=== PATIENT | male | born 1980 | race Caucasian/White ===

== ENCOUNTER 2021-04-11 12:58 | Outpatient (CLI) | payer OTHER, SELFPAY ==
--- NOTE | 2021-04-11 13:03 | XR_ITS ---
WS: [id number] LEFT KNEE: 3 VIEW(S) TECHNIQUE: AP, oblique(s) and lateral. HISTORY: L knee pain, Swelling COMPARISON: None available. No fracture or dislocation. No joint space narrowing or osteophytes. No joint effusion. No soft tissue abnormality. XR/XR knee LT 3V* [id number] IMPRESSION: Normal LEFT knee.
== END 2021-04-11 12:59 | disposition home or self-care (01) ==
PROVIDERS: Visit Provider Family Medicine
DX: M25.561 Pain in right knee (principal); M79.89 Other specified soft tissue disorders; Z76.89 Persons encountering health services in other specified circumstances; R03.0 Elevated blood-pressure reading, without diagnosis of hypertension
CPT/HCPCS: 73562; 80053; 80061; 85025

== ENCOUNTER → 2021-05-28 13:00 | Outpatient (BNVA) | payer OTHER, SELFPAY | PROVIDERS: Referring Provider Family Medicine; Visit Provider Specialist | DX: M25.562 Pain in left knee (principal) | CPT/HCPCS: 73560; 73565 ==

== ENCOUNTER 2021-06-26 13:29 | Outpatient (CLI) | payer OTHER, SELFPAY ==
--- NOTE | 2021-06-26 13:45 | MR_ITS ---
WS: [id number] MRI LEFT KNEE NONCONTRAST TECHNIQUE: Axial PD, coronal PD fat sat, coronal PD, sagittal PD, and sagittal PD fat-sat images obta ined. CLINICAL INFORMATION: M25.562 - Pain in left knee COMPARISON: None. FINDINGS: Distal quadriceps and patella tendons are intact. Normal ACL and PCL. Hypertrophic patella. Normal la teral meniscus. Chronic intrasubstance signal abnormality involving the posterior horn medial meniscu s. Small radial tear or pseudotear anterior horn medial meniscus extending to the articular surface and free edge of the meniscus. Mild chondromalacia patella. No subchondral edema. Medial and lateral patellar retinaculum are intact . Normal LCL and MCL. Tiny popliteal cyst measuring 6.8 x 9.1 x 16.8 mm AP by transverse by craniocau pierre. Normal bone marrow signal involving the tibial plateau. Normal medial and lateral femoral condyles. MR/MR knee LT wo con* [id number] IMPRESSION: 1. Anterior and posterior cruciate ligaments are intact. 2. Chronic intrasubstance signal abnormality involving the posterior horn medi al meniscus. 3. Small radial tear or pseudotear involving the anterior horn medial meniscus extending to the articular surface and free edge. This is only well seen on th e sagittal imaging. 4. Medial and lateral collateral ligaments are intact. 5. No edema in the femoral condyles or tibial plateau. Grade 1-2 chondromalaci a. 6. Mild chondromalacia patella. 7. Tiny popliteal cyst measuring 6.8 x 9.1 x 16.8 mm AP by transverse by crani ocaudal. Outbridge grading: grade II: blister-like swelling/fraying of articular cartila ge extending to surface
== END 2021-06-26 13:30 | disposition home or self-care (01) ==
PROVIDERS: Visit Provider Specialist
DX: M22.42 Chondromalacia patellae, left knee (principal); M71.22 Synovial cyst of popliteal space [Baker], left knee; M25.562 Pain in left knee
CPT/HCPCS: 73721

== ENCOUNTER 2021-09-05 07:35 | Outpatient (CLI) | payer OTHER, SELFPAY ==
--- NOTE | 2021-09-05 07:48 | USCV_ITS ---
Corey Messina Age: 40 Gender: M : 1980 Exam Date: 09/05/2021 08:01 Ordering Phys: Randa Peña MD Technologist: Oscar Bassett Exam Location: [facility] [place]_ Indication: pain in lt thigh PROCEDURES: Venous duplex imaging was performed in only the left lower extremity. The following venous structures were evaluated: common femoral vein, profunda vein, proximal portion of the greater saphenous vein, superficial femoral vein, and the popliteal vein. In addition, the posterior tibial and peroneal trunk were evaluated. Serial compression, augmentation maneuvers, and spectral Doppler flow evaluation were performed. FINDINGS: Normal 2-D Doppler and augmentation and compressibility throughout the lower extremity venous structures. Additional imaging through the proximal calf veins also reveals no thrombus. Limited evaluation of the greater saphenous vein is patent with no thrombus.. CONCLUSIONS No evidence of left lower extremity DVT. Yusef Franco MD (Electronically Signed) Final Date: 05 Sep 2021 17:17 S
== END 2021-09-05 07:36 | disposition home or self-care (01) ==
PROVIDERS: PCP Family Medicine; Visit Provider Specialist
DX: S83.242D Other tear of medial meniscus, current injury, left knee, subsequent encounter (principal); M79.652 Pain in left thigh
CPT/HCPCS: 93971

== ENCOUNTER 2021-09-07 09:38 | Day surgery (SDC) | payer OTHER, SELFPAY ==
[2021-09-06 13:02] VITALS: BMI 27.8
[2021-09-07] MEDS: acetaminophen 1,000 MG/100 ML PIGGYBACK 400 MG IV (11:00)
[2021-09-07] MEDS: CELEcoxib 200 mg Capsule 400 MG PO (11:00)
[2021-09-07] MEDS: sodium chloride 0.9% 1,000 ML 30 ML IV (11:00)
[2021-09-07 11:03] VITALS: BP 160/96; PULSE 63; RESP 18; TEMP 36.7; O2SAT 98
--- NOTE | 2021-09-07 11:43 | ANES.PREANE2 ---
Pre-Anesthetic Assessment Height/Weight: Height 1.7 m Weight 80.739 kg Temp Pulse Resp BP Pulse Ox 98.0 F 63 18 160/96 98 09/07/21 11:03 09/07/21 11:03 09/07/21 11:03 09/07/21 11:03 09/07/21 11:03 Preop Diagnosis: Left knee medial meniscal tear Operation Date: 09/07/21 11:30 Proposed Procedures p Left knee arthroscopy with medial menisectomy 16473/s83.209a(Left) - Randa Peña MD Familial anesthetic complications: None Was Beta Jackie taken within 24 hours: N/A Was Clonidine taken within 24 hours: N/A Last intake: Intake Last Liquid Date 09/06/21 Last Liquid Time 18:30 Last Solid Date 09/06/21 Last Solid Time 18:30 Social Tobacco and No alcohol Exam alert, oriented x 3, clear to auscultation bilaterally and regular rate & rhythm Airway Submandibular: within normal limits Cervical ROM: within normal limits Mallampati: Class II Comments: Comments: Missing teeth Chipped teeth front uppers Pulmonary None reported CV/HEM Hypertension None reported Hepatic None reported GI None reported Metabolic None reported Musc/skel Osteoarthritis/DJD left meniscus tear Neuropsych None reported Anesthetic Plan ASA status: 3 (40 year old smoker with htn and OA) Anesthesia: Anesthesia Evaluation and General Other: We discussed risk and benefits of general anesthesia including PONV, sore throat (sometimes severe), corneal abrasion, positioning and peripheral nerve injuries, life threatening allergic reaction, post operative ICU admission requiring prolonged intubation, stroke, heart attack, , and rare incidences of recall. Patient consents to proceed with general anesthesia. Risk of > 500 ml blood loss (7ml/kg in children): No Medications/Allergies Home Medications Medication Instructions Recorded Confirmed Last Taken Type lisinopril 40 mg tablet 40 mg PO DAILY #30 tab 05/07/21 09/07/21 09/06/21 Rx aspirin 81 mg chewable tablet 81 mg PO DAILY 09/06/21 09/07/21 09/06/21 History (Aspirin Childrens) hydrocodone 5 mg-acetaminophen 325 1 tab PO Q4H PRN 7 Days #30 tab 09/07/21 Unknown Rx mg tablet Allergies Allergy/AdvReac Type Severity Reaction Status Date / Time No Known Allergies Allergy Verified 09/06/21 12:58 Current Medications Generic Name Dose Route Start Last Admin Trade Name Freq PRN Reason Stop Dose Admin Sodium Chloride 1,000 mls @ 30 mls/hr 09/07/21 10:45 09/07/21 11:00 Sodium Chloride 0.9% IV 09/08/21 10:44 30 mls/hr .Q24H MICHAEL Administration PFSH Anesthesia Social History Smoking and tobacco status: never smoked Alcohol intake: current Alcohol intake frequency: holidays/special occasions only Data Anesthesia Cardiac Studies: No Data to Display
--- NOTE | 2021-09-07 11:47 | W.PM.OPSUD ---
Surgery/Procedure H&P Update DATE OF PROCEDURE: September 07, 2021 DATE H&P PERFORMED: 09/03/21 H&P UPDATE INFORMATION: I have reviewed H&P completed within last 30 days, I have examined patient prior to procedure, No changes to prior documentation and H&[place] is in [facility] on date indicated PREOP DIAGNOSIS: Left knee medial meniscal tear PLANNED PROCEDURE: Operation Date: 09/07/21 11:30 Proposed Procedures p Left knee arthroscopy with medial menisectomy 99413/s83.209a(Left) - Randa Peña MD Related Problem List Diagnoses (1) Tear of medial meniscus of left knee, current:
[2021-09-07] MEDS: morphine 4 mg/mL SDV 1 mL 8 MG XX (12:27)
[2021-09-07 13:30] VITALS: BP 148/93; PULSE 98; RESP 22; TEMP 36.4; O2SAT 94
[2021-09-07 13:34] VITALS: BP 131/75; PULSE 113; RESP 22; O2SAT 98
[2021-09-07 13:39] VITALS: BP 132/75; PULSE 102; RESP 22; O2SAT 97
[2021-09-07 13:55] VITALS: BP 160/96; PULSE 63; RESP 18; O2SAT 98
--- NOTE | 2021-09-07 14:21 | PM.OP ---
Operative Report Date of procedure: September 07, 2021 Pre-op diagnosis: Left knee medial meniscal tear Post-op diagnosis: Left knee medial meniscal and lateral meniscal tears Post-op findings: Bucket handle tear medial meniscus, lateral meniscal tear Procedure done: Left knee arthroscopy with partial medial and lateral meniscectomies Specimens removed/disposition: Arthroscopic shavings, disposed of Surgeon: Randa Peña Therapeutic Recreation Assistant: [facility] operating room technicians Anesthesia: General (LMA, ASA 2) Estimated blood loss (mL): 10 Tourniquet time (min): 60 (At 250 mmHg) IV fluids (mL): 600 Urine output (mL): 0 (No Mack) Complications: None Findings: Large bucket-handle tear medial meniscus, diffuse tearing of the lateral meniscus Condition: stable Disposition: PACU (Then back to outpatient surgery for discharge to home) Brief History: The patient states the pain has been present for several months.? He states the left knee started locking when in the flexed position about 1 year ago. He states that he would have to physically unlock it or hyperflex the knee to get it to release. This past February, he states he was hunting and squatted against tree for about an hour. Once he stood up the current pain was present. It has persisted since that time. He rates his pain at 0/10 at this time but states there are times it is 10/10. Elevation and rest help the pain. Ambulation makes the pain worse.? He also notes tenderness along the medial thigh which is a relatively new development. MRI confirmed medial meniscal tear. He wished to proceed with operative intervention in the form of arthroscopic meniscectomy and debridement. Risks and complications were discussed. Consents were signed. Procedure: Patient was brought to the operating theater and after undergoing adequate general LMA anesthesia, ASA 2, the patient's left lower extremity was prepped and draped in usual fashion utilizing DuraPrep.? A tourniquet was placed high on the leg prior to prepping and draping.? The tourniquet was elevated prior to commencement of the surgical procedure to 250 mmHg.? Total tourniquet time was 60? minutes.? Elevation followed prepping and exsanguination.? Prior to commencement of the surgical procedure, a surgical pause was performed.? At the time of the surgical pause, we identified the site and side of surgery.? We also confirmed the patient's identity and appropriate and timely administration of preoperative antibiotics.? Preoperative surgical markings were also visualized at this time. Standard arthroscopic portals were utilized including superolateral, inferomedial, and inferolateral portals.? The examination commenced in the suprapatellar pouch area where the patient was noted to have minimal synovitis.? The arthroscope was then passed in the medial compartment where there was noted to be a large bucket-handle tear. ? The arthroscope was then passed across the notch area where anterior cruciate ligament was visualized and found to be intact.? The scope was passed into the lateral compartment with the knee in a [id number] position.? Lateral meniscus was noted to have degenerative tearing along the inner rim and anteriorly, there was abnormal meniscal pathology in the form of a tear as well.? The inner rim of the meniscus was addressed with a combination of the intra-articular shaver, basket forceps, and the intra-articular heat wand. The anterior tearing was also addressed similarly. Once lateral meniscus had been thus prepared it was again palpated and found to be intact and not displaceable into the knee joint.? Scope was then returned to the medial compartment where the bucket-handle tear of the meniscus was excised using a combination of basket forceps, the shaver, the grasper, and heat wand. Both the anterior and posterior attachment points of the bucket-handle tear were addressed. Further smoothing of the meniscus was accomplished with heat 1. Once the meniscus had been addressed, it was palpated and found to be not displaceable into the knee joint.? The arthroscope was then returned to the patellofemoral joint where no further surgical intervention was necessary.? The scope was passed back through the knee compartments to evaluate for other abnormalities.? Finding none, attention was directed to closure. The knee was copiously irrigated and suctioned dry.? Following this, each portal was closed with a simple suture followed by Dermabond and OpSite.? Additionally, the knee was injected with 20 mL of half percent ropivacaine and 8 mg of morphine.? Additional injections were placed about each portal.? Sterile dressing was placed consisting of the the OpSite as noted above followed by soft roll and Michael wrap.? Patient was returned to Recovery Room in satisfactory condition where he will be discharged home to follow-up with me in the office as scheduled.? There were no complications and no specimens. Related Problem List Diagnoses (1) Tear of lateral meniscus of knee, current: (2) Tear of medial meniscus of left knee, current:
== END 2021-09-07 14:50 | disposition home or self-care (01) ==
PROVIDERS: PCP Family Medicine; Visit Provider Specialist
PROC: (CPT 29870; principal; 2021-09-07 11:30)
DX: S83.212A Bucket-handle tear of medial meniscus, current injury, left knee, initial encounter (principal); S83.252A Bucket-handle tear of lateral meniscus, current injury, left knee, initial encounter; X58.XXXA Exposure to other specified factors, initial encounter; I10 Essential (primary) hypertension; Z79.82 Long term (current) use of aspirin
CPT/HCPCS: 29881; J2250; J2270; J2405; J2704; J2795; J3010; J7030

== ENCOUNTER 2021-10-04 16:24 | Outpatient (RCR) | payer OTHER, SELFPAY | END 2021-10-11 23:59 | disposition home or self-care (01) | LOC: SPT 16:24 | PROVIDERS: PCP Family Medicine; Referring Provider Specialist; Visit Provider Specialist | DX: S83.242D Other tear of medial meniscus, current injury, left knee, subsequent encounter (principal); M79.652 Pain in left thigh; X58.XXXD Exposure to other specified factors, subsequent encounter | CPT/HCPCS: 97161 ==

== ENCOUNTER 2021-10-12 06:00 | Outpatient (RCR) | payer OTHER, SELFPAY | END 2021-11-11 23:59 | disposition home or self-care (01) | LOC: SPT 06:00 | PROVIDERS: PCP Family Medicine; Referring Provider Specialist; Visit Provider Specialist | DX: Z47.89 Encounter for other orthopedic aftercare (principal) | CPT/HCPCS: 97110 ==

== ENCOUNTER → 2021-11-05 08:31 | Outpatient (BNVA) | payer OTHER, SELFPAY | PROVIDERS: PCP Family Medicine; Visit Provider Family Medicine | DX: I10 Essential (primary) hypertension (principal); E78.5 Hyperlipidemia, unspecified; Z11.4 Encounter for screening for human immunodeficiency virus [HIV]; Z11.59 Encounter for screening for other viral diseases; F17.218 Nicotine dependence, cigarettes, with other nicotine-induced disorders | CPT/HCPCS: 80053; 80061; 86803; 87806 ==

== ENCOUNTER 2021-11-06 15:03 | Outpatient (CLI) | payer OTHER, SELFPAY ==
[2021-11-06 23:04] LABS: Anion Gap 16.4 (5-19); Blood Urea Nitrogen 11 mg/dL (6-20); Calcium 9.9 mg/dL (8.5-10.5); Carbon Dioxide 27 mmol/L (22-29); Chloride 95 mmol/L (98-107); Glomerular Filtration Rate 81.9 mL/min (90-130); Glucose 75 mg/dL (65-115); Osmolality Calculated 276 mOsm/kg (285-295); Potassium 4.4 mmol/L (3.5-5.1); Sodium 134 mmol/L (136-145)
== END 2021-11-06 15:04 | disposition home or self-care (01) ==
PROVIDERS: PCP Family Medicine; Visit Provider Family Medicine
DX: R79.0 Abnormal level of blood mineral (principal)
CPT/HCPCS: 36415; 80048

== ENCOUNTER → 2022-09-20 15:14 | Outpatient (BNVA) | payer OTHER, SELFPAY | PROVIDERS: PCP Family Medicine; Visit Provider Family Medicine | DX: I10 Essential (primary) hypertension (principal); E78.5 Hyperlipidemia, unspecified; F17.218 Nicotine dependence, cigarettes, with other nicotine-induced disorders; E83.52 Hypercalcemia | CPT/HCPCS: 80053; 80061; 82306; 83036; 84443; 85025 ==

== ENCOUNTER → 2023-10-01 09:15 | Outpatient (BNVA) | payer BC, SELFPAY | PROVIDERS: PCP Family Medicine; Visit Provider Family Medicine | DX: I10 Essential (primary) hypertension (principal); E78.5 Hyperlipidemia, unspecified; Z00.00 Encounter for general adult medical examination without abnormal findings | CPT/HCPCS: 80053; 80061; 85025 ==

== ENCOUNTER 2024-01-19 03:18 | Inpatient (IN) | payer BC, SELFPAY ==
[2024-01-19] VITALS (47 sets, daily range): BP systolic 40–172; BP diastolic 27–107; PULSE 49–127; RESP 16–31; TEMP 36.1–37.2; O2SAT 92–100; BMI 26.6
--- NOTE | 2024-01-19 03:22 | XRR_ITS ---
PROCEDURE INFORMATION: Exam: XR Chest Exam date and time: 01/19/2024 3:22 AM Age: 43 years old Clinical indication: Patient HX: EMS arrival for stemi that went into cardiac arrest within minutes of arrival. Et and og in place. TECHNIQUE: Imaging protocol: Radiologic exam of the chest. Views: 1 view. COMPARISON: ES surgery / GI images 09/07/2021 11:45 AM FINDINGS: Tubes, catheters and devices: Endotracheal tube is present with its tip 2-3 cm above the esau. Nasogastric tube is present with its tip within the stomach. Lungs: There may be minimal central vascular congestion. No focal consolidation is appreciated. Pleural spaces: Unremarkable. No pleural effusion. No pneumothorax. Heart/Mediastinum: Heart size is normal. Bones/joints: Unremarkable. XR/XR chest 1V portable [id number] IMPRESSION: 1. Successful placement of endotracheal tube and nasogastric tubes. 2. Possible minimal central vascular congestion.
--- NOTE | 2024-01-19 03:34 | ECG_ITS ---
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 Measurements Intervals [place] Rate: 60 P: 15 AK: 290 QRS: 88 QRSD: 118 T: -43 QT: 341 QTc: 343 Interpretive Statements SINUS RHYTHM WITH FIRST DEGREE AV BLOCK INFERIOR MYOCARDIAL INFARCTION , PROBABLY RECENT [40+ ms Q WAVE AND/OR ST/T ABNORMALITY IN II/aVF] MARKED ST ELEVATION, CONSIDER ANTERIOR INJURY [MARKED ST ELEVATION W/O NORMALLY INFLECTED T-WAVE IN V2-V5] ACUTE AL No previous ECG available for comparison Electronically Signed On 01-20-2024 01:19:28 CDT by Jacki Plunkett M.D. [email or web address]
--- NOTE | 2024-01-19 03:42 | XACV_ITS ---
Exam Room: 2 Ht: 170 cm Wt: 77 kg BSA: 1.92 m2 Gender: Male : 1980 Exam Priority: Routine Procedure(s): Procedure Description: Diagnostic procedure Procedure Description: PCI procedure Procedure Description: Left Heart Catheterization Procedure Description: Left ventriculography Procedure Description: Drug Eluting Coronary Stent Procedure Description: PTCA Procedure Description: Coronary Thrombectomy Procedure Description: Miscellaneous Procedure Description: ACT Procedure Description: Coronary Angiography Bienvenido HARDING; Diagnostic Cath Status: Emergency Diagnostic Findings * Left Main has no disease. * Left Anterior Descending has no disease. * Circumflex has no disease. * Proximal Right Coronary Artery: obstructive 70% stenosis, PINEDA: 3 flow. * Coronary angiography shows right dominance. PCI Status: Emergency PCI Indication: Immediate PCI for STEMI Interventional Findings * Proximal Right Coronary Artery: 70% stenosis treated with a AB MINI TREK 2.00X15 RX BALLOON, AB TREK 2.50X20 RX BALLOON, MDKvng R RALPH 3.0X38 SILVIA, and MDT SAMANTHA EUPHORA RX [id number] BALLOON. Conclusions 1. There is obstructive coronary artery disease with one vessel disease. 2. Proximal Right Coronary Artery was treated with a Balloon, Balloon, Drug Eluting Stent, and Balloon. 3. 43-year-old male past medical history significant for continuous tobacco abuse hypertension hyperlipidemia presented with bradycardia cardiac arrest hypotension, patient was resuscitated intubated cutaneously paced he remains hypotensive on 3 pressors taken to the Shading Painter, through right common femoral and venous access temporary pacemaker was placed and patient was paced at 100 bpm. Left heart catheterization was performed immediately.Left main: Normal no significant stenosis LAD: Is a small caliber diffusely diseased vessel with proximal 50-60 and mid 70% while distal 90% disease, distal disease is in the segment of tapering vessel not amenable to intervention while proximal and mid LAD are thought not to be significant at this point to intervene or they were not the culprit. Left circumflex is nondominant with mid 60 to 70% nonsignificant stenosis, rest of the vessel has diffuse disease Right coronary artery: It is a dominant culprit vessel with 100% occluded, it has calcification. It is the culprit vessel. 4. Successful PCI and thrombectomy of the proximal to mid RCA with drug-eluting stent postdilated with noncompliant balloon: Using JR guide right coronary artery was engaged, run-through wire was used to cross the lesion. Multiple balloon angioplasty using 2.0 x 15 and 2.5 x 20 mm balloon were performed which did not open up the blood vessel, Pronto catheter was used for thrombectomy which restored vessels blood flow, soon after revascularization patient had V-fib arrest treated with DC cardioversion and 10 minutes of CPR. ROSC was achieved, we will proceed with 3.0 x 38 mm Ralph drug-eluting stent, it was postdilated with 3.5 x 15 mm noncompliant balloon with excellent angiographic result and restriction of PINEDA-3 flow. Recommendations * 1-Return to ICU, continue pressors and IV Aggrastat as per protocol and orders 2-Risk factor modification for secondary prevention 3-Statin and aspirin 81 mg life-long, if tolerated 4-Patient was pre-loaded with 600 mg of Plavix, continue Plavix 75mg p.o. daily for at least one year. We will assess at the end of one year again to continue if further or not 5-Continue optimal medical management 6-consider RV Impella in case patient hemodynamically remains unstable due to possible RV infarct, will obtain echocardiogram. . Interventional RX Recommendation: PCI w/o planned CABG Diagnostic RX Recommendation: PCI w/o planned CABG Pressures Phase:Rest AO : 83 / 54 ( 65 ) @ 5:31:00 AM 56 / 45 ( 50 ) @ 5:36:00 AM 113 / 95 ( 103 ) @ 6:04:00 AM 101 / 86 ( 85 ) @ 6:09:00 AM LV : 108 / 3 / 25 @ 6:19:00 AM Clinical Evaluation EBL: 5mL-10mL Procedural Details Procedure Consent Obtained. Pre-Procedure Time Out. Identified patient by full name and date of as verbalized by the patient/guarantor. Does the consent match the physician's order: N/A Emergent. Accurate & Complete Informed Consent: N/A Emergent. Inpatient/Outpatient History & Physical on Chart: N/A Emergent. If H&P is completed, is and addenduem needed: N/A Emergent; If yes, is the addendum complete: N/A Emergent. Visualize and Verify Site with Patient/Guarantor: N/A. Relevant Radiology Images available: No. Pre-op teaching completed and patient verbalized understanding. The risks, benefits, and alternatives of sedation and/or procedure were discussed by physician. The patient agrees to continue. Procedure started. The patient arrived with epi, levophed and a propofol drip running. Physician scrubbed in. Immediate Pre-Procedure Time Out. Correct Patient: N/A Emergent; Correct Procedure: N/A Emergent; Correct Site: N/A Emergent; Correct Patient Position: N/A Emergent; Correct Supplies: N/A Emergent; Dried Flammable Prep: N/A Emergent; Blood Products Available: N/A Emergent;. Lidocaine 1% infiltrated to the right groin. Venous access obtained with a micropuncture set. [facility] Clinical Fraility Score: 7: Severely Frail. Shading Painter Indications: ACS <= 24 hours. Chest Pain Symptom Assessment: Atypical Angina. Cardiovascular Instability: Yes, if yes, Persistant Ischemic Symptoms. Cardiovascular Instability: Yes, if yes, Ventricular Arrhythmias. Cardiovascular Instability: Yes, if yes, Hemodynamic Instability. Current diagnosis: STEMI. Correct patient, site and procedure confirmed by cath team. Oxygen started at 2liters/min via nasal canula. Arterial access obtained with micropuncture set. Respiratory and ED staff here to assist. Temporary pacer inserted. 6 spanish JR 4 guide catheter was inserted over the wire. Rate: 80 Output: 5 Sensitivity: 4. ACT drawn. Results 224 seconds. Therapeutic limits - pre-heparin administration 90-150 seconds and monitoring heparin during a vascular procedure >250 seconds. Runthrough guidewire was advanced through the guide catheter to lesion in the prox RCA. Inflation number : 1 A AB MINI TREK 2.00X15 RX BALLOON was prepped and advanced across the Prox RCA , then inflated to 15 RIK for 0:13 seconds. Inflation number: 2 The AB MINI TREK 2.00X15 RX BALLOON was reinflated across the Prox RCA, to 14 RIK for 0:09 seconds. Inflation number: 3 The AB MINI TREK 2.00X15 RX BALLOON was reinflated across the Prox RCA, to 16 RIK for 0:07 seconds. Inflation number: 4 The AB MINI TREK 2.00X15 RX BALLOON was reinflated across the Prox RCA, to 16 RIK for 0:10 seconds. Inflation number: 5 The AB MINI TREK 2.00X15 RX BALLOON was reinflated across the Prox RCA, to 18 RIK for 0:08 seconds. Balloon out. Results checked. Inflation number : 6 A AB TREK 2.50X20 RX BALLOON was prepped and advanced across the Prox RCA , then inflated to 18 RIK for 0:12 seconds. Balloon out. Results checked. Current Diagnosis : STEMI. Pronto catheter inserted OTW and advanced to the RCA. Thrombectomy performed. Pronto catheter removed OTW. PCI Indication: STEMI. PCI Indication : Immediate PCI for STEMI. Stent inserted to lesion in the prox RCA. CPR started. Code called. CODE being recorded. See CODE chart for medication times and pulse checks. Stent balloon and wire out. Guide catheter out. 6 spanish JR 4 guide catheter was inserted over the wire. Runthrough guidewire was advanced through the guide catheter to lesion in the prox RCA. ACT drawn. Results 298 seconds. Therapeutic limits - pre-heparin administration 90-150 seconds and monitoring heparin during a vascular procedure >250 seconds. Inflation Number : 7 Vanessa Tyler RALPH 3.0X38 SILVIA -Lot Number# _[id number] EXP: 09/21/2026 was prepped and advanced across the Prox RCA. The stent was deployed at 16 RIK for 0:25 seconds. Stent balloon out over wire. Inflation number : 8 A MDT NC EUPHORA RX [id number] BALLOON was prepped and advanced across the Prox RCA , then inflated to 12 RIK for 0:22 seconds. Inflation number: 9 The MDT NC EUPHORA RX [id number] BALLOON was reinflated across the Prox RCA, to 12 RIK for 0:09 seconds. Inflation number: 10 The MDT NC EUPHORA RX [id number] BALLOON was reinflated across the Prox RCA, to 12 RIK for 0:09 seconds. Balloon out. Results checked. Wire out. Guide catheter out. A 5 spanish JL4 catheter in over wire. Multiple views taken of left coronary artery. Physician review of cine films. Catheter removed over the exchange wire. A 5 spanish Angled Pig catheter in over wire. EDP Sample taken: LV 108/3,25; HR: 113 BPM; SpO2: 100%. TPM turned off. TPM turned back on. LV gram performed in JI @ 10 mL/second for a total of 30 mL. Pullback taken: LV Off; AO Off; Mean: , Peak to Peak: , SEP: ; HR: 111 BPM; SpO2: Off%. Catheter removed over the standard wire. A Right femoral angiogram was performed to determine safe placement of closure device. Physician scrubbed out. A Suture was successful obtaining hemostatsis at the Right Femoral artery insertion site. A Suture was successful obtaining hemostatsis at the Right Femoral vein insertion site. Sheath(s) sutured into position with 2-0 silk and sterile 4x4's and Op-site applied over the site. No oozing or signs and symptoms of hematoma noted. Arterial sheath flushed and connected to tranducer and pressure bag with heparinized saline. Post Procedure: Pulses reassessed and unchanged. PERRLA. Strong, equal hand illuminating engineer bilaterally. No VTE prophylaxis required. Post-op diagnosis: Stent to RCA. Complications: None. Vital chart was stopped. Estimated blood loss: 5mL-10mL. Responsiveness - Normal response to verbal stimuli; alert and oriented, PERRLA. Airway - Unaffected, no intervention required; spontaneous ventilation. Circulation: W/N/L, pulses unchanged. Nausea/Vomiting: No. Procedure completed. Patient transferred by bed to ICU. Access Site Site: Right Femoral vein Sheath Size: 6 Fr Hemostasis Method: Suture Hemostasis Success: Successful Site: Right Femoral artery Sheath Size: 6 Fr Hemostasis Method: Suture Hemostasis Success: Successful Procedure Medications Start: 4:33 AM Stop: 4:33 AM Medication: unlisted medication Amount: mg Route: I.V. Start: 4:39 AM Stop: 4:39 AM Medication: Heparin Amount: 5000 units Route: I.V. Start: 4:41 AM Stop: 4:41 AM Medication: Aggrastat 12.5 mg/250 mL Amount: 39 ml Route: I.V. bolus Start: 4:41 AM Stop: 4:41 AM Medication: Aggrastat 12.5 mg/250 mL Amount: 14 ml/hr Route: I.V. drip Start: 5:01 AM Stop: 5:01 AM Medication: unlisted medication Amount: 100 mg Route: I.V. Start: 5:15 AM Stop: 5:15 AM Medication: Heparin Amount: 2000 units Route: I.V. Start: 5:32 AM Stop: 5:32 AM Medication: Fentanyl Amount: 50 mcg Route: I.V. drip Start: 5:54 AM Stop: 5:54 AM Medication: Versed Amount: 2 mg Route: I.V. I, the attending physician, have reviewed and verified all procedure medications. Yes, all medications given per verbal order History/Risk Factors Hypertension: No Dyslipidemia: No Peripheral Arterial Disease (PAD): No Myocardial Infarction (OR): No Obesity: No Renal Disease: No Prior Interventions PCI: Yes CABG: No Valve Surgery: No Date of PCI: 01/19/2024 Report Signatures Finalized by Marcelino Hernández MD on 01/19/2024 12:21 PM
[2024-01-19] MEDS: clopidogrel 300 mg Tablet 600 MG PO (03:52)
[2024-01-19 03:53] LABS: Basophils # 0.1 10^3/uL (0.0-0.1); Basophils % 0.4 %; Eosinophils # 0.5 10^3/uL (0.0-0.8); Eosinophils % 2.6 %; Hematocrit 47.8 % (37-53); Lymphocytes # 4.3 10^3/uL (0.8-4.8); Mean Corpuscular HGB Conc 34.3 g/dL (30-55); Mean Corpuscular Volume 87.5 fl (82-101); Mean Platelet Volume 11.6 fL (7.4-10.4); Monocytes # 0.9 10^3/uL (0.2-0.9); Monocytes % 5.2 %; Neutrophils # 11.48 10^3/uL (1.8-7.7); Neutrophils % 66.1 %; Nucleated Red Blood Cells % 0 %; Platelet Count 279 10^3/cmm (157-399); Red Blood Count 5.46 10^6/uL (3.85-5.65); Red Cell Distribution Width 13.3 % (12.1-15.1); White Blood Count 17.38 10^3/uL (3.29-11.43)
[2024-01-19] MEDS: propofol 1,000 MG/100 ML INJ 2.31 MG IV (04:00)
[2024-01-19 04:05] LABS: Troponin(5th) Baseline 8 ng/L (0-15)
[2024-01-19] MEDS: norepinephrine 4 MG/250 ML BAG 37.5 MG IV (04:10)
[2024-01-19 04:15] LABS: Alanine Aminotransferase 24 U/L (0-41); Albumin Level 4.2 g/dL (3.5-5.2); Alkaline Phosphatase 103 U/L (40-130); Anion Gap 17.6 (5-19); Aspartate Amino Transferase 38 U/L (0-40); Blood Urea Nitrogen 16 mg/dL (6-20); Carbon Dioxide 22 mmol/L (22-29); Chloride 101 mmol/L (98-107); Creatine Phosphokinase 105 U/L (39-308); Glomerular Filtration Rate 54.8 mL/min (90-130); Glucose 237 mg/dL (65-115); Lipase 43 U/L (13-60); NT Pro B Type Natriuretic Pept 50 pg/mL (0-125); Osmolality Calculated 293 mOsm/kg (285-295); Potassium 3.6 mmol/L (3.5-5.1); Sodium 137 mmol/L (136-145); Total Bilirubin 0.7 mg/dL (0.15-1.2); Total Protein 6.2 g/dL (6.6-8.7)
[2024-01-19 04:16] LABS: Alcohol Level < 10 mg/dL (0-10); Creatinine Clr Calc Pharmacy 66.4476
--- NOTE | 2024-01-19 04:25 | PC.NURSE ---
This RN contacted mother listed in the chart. Family notified of pt status and are coming to hospital at this time.
[2024-01-19 04:26] LABS: Partial Thromboplastin Time 27.8 SECONDS (23.9-36.7)
--- NOTE | 2024-01-19 04:52 | ED_ITS ---
HPI - Chest Pain 2 General: Chief Complaint: Chest Pain Stated Complaint: CP Time Seen by Provider: 01/19/24 04:14 History of Present Illness: 43-year-old male with no prior history o f coronary disease. He does have a history of hypertension and what appears to be dyslipidemia. Evidently, he came home from work around 130 this morning, developed chest pain. EMS was called. On their arrival, he was found to have a heart rate in the 30s, having chest discomfort, and was very lethargic. He had a low blood pressure. EKG showed significant ST elevation in the inferior leads. Transcutaneous pacing was initiated, with Versed for sedation. He arrives with adequate oxygenation on room air, but obtunded, and partial capture on pacing. Related Data Previous Rx's Medication Instructions Recorded amlodipine 5 mg-benazepril 40 mg 1 cap PO DAILY #90 caps 10/01/23 capsule Allergies Allergy/AdvReac Type Severity Reaction Status Date / Time No Known Allergies Allergy Verified 10/01/23 08:30 [facility] ED 2 [facility]: Medical History (Updated 01/19/24 @ 06:35 by Dagoberto Faria DO) Allergic rhinitis due to allergen Otitis media of right ear Social History Smoking and tobacco/nicotine status: current every day tobacco/nicotine user cigarettes Packs smoked per day: 1.5 Alcohol intake: current Alcohol intake frequency: holidays/special occasions only Substance/Drug Use: never Physical Exam 2 Const: GENERAL APPEARANCE: ill appearing ORIENTATION/CONSCIOUSNESS: Yes patient obtunded HENMT: COMMON NORMALS: normocephalic and atraumatic HEAD & SCALP: n ormocephalic and atraumatic FACE & SINUS: face symmetric THROAT: posterior oropharynx normal Neck/C-Spine: GENERAL: Yes trachea midline Chest: CHEST: Yes Symmetrical chest wall rise Resp: COMMON NORMALS: clear to auscultation bilaterally EFFORT & INSPECTION: Yes decreased respiratory effort AUSCULTATION: clear to auscultation bilaterally and diminished lung sounds Cardio: COMMON NORMALS: regular rate (paced) RATE: regular rate (paced) GI: COMMON NORMALS: Soft to palpation INSPECTION: No abdominal distension PALPATION: Yes Soft to palpation Extremity: COMMON NORMALS: no pedal edema Neuro: JEAN-CLAUDE COMA SCALE: document GCS findings Jean-Claude coma scale eye opening: To pressure [place] coma scale verbal response: Words [place] coma scale motor response: Localising Jean-Claude coma scale total score: 10 S ENSORIUM/ORIENTATION: Yes obtunded Procedures Intubation Time out performed: No sedative: Etomidate Mg Given: 20 paralytic: Succinylcholine Mg Given: 100 Laryngoscope: fiber optic video scope Assist Device Used: fiber optic device ET Tube Size: 8.5 ET Tube Uncuffed: No Tube Secured Depth (cm): 24 Tube Secured Location: lips Patient Tolerated Procedure: well and no complications Intubation Complications: none Course 2 Vital Signs: Vital signs: Vital Signs Pulse Rate 85 01/19/24 04:12 Respiratory Rate 23 H 01/19/24 04:10 Blood Pressure 40/27 01/19/24 04:05 Pulse Oximetry 100 01/19/24 04:12 Oxygen Delivery Me thod Room Air 01/19/24 03:18 MDM - Chest Pain Medical Decision Making STEMI alert was called from the field. Owner Operator Tanker Truck Driver team was activated. On the patient's arrival, I contacted cardiology. At that point the patient was confused, lethargic. Pacing was continued, with partial capture. The patient's blood pressure began to fall. At that point, cardiology and I agreed that given the need for emergent Owner Operator Tanker Truck Driver transfer for transcutaneous pacing and angiogram, with the patient's mental status decreasing, definitive airway should be established. The patient was intubating endotracheally using RSI technique without any complication. Adequate oxygenation was maintained throughout, with saturations at or above 99% for the procedure. Succinylcholine, and etomidate were used. The patient continued to decompensate despite airway management. We began to lose capture with pacing. Heart rate began to fall. We lost central pulses. CPR was started with good ACLS technique immediately. Fluid bolus was started. 1 mg of epinephrine was administered. Pacing was turned off. At first pulse check, ventricular fibrillation was noted on the monitor. The patient was defibrillated followed by immediate CPR return. A second milligram of epinephrine was given, and amiodarone 300 mg was given as well. At the next pulse check, rhythm was established, with pulses present. Patient was given p.o. dose small amounts of epinephrine until epinephrine drip was established. Cath team arrived. OG tube was placed, 4000 units of heparin were given IV. Plavix 600 mg and aspirin 324 mg were put through the OG tube. X-ray previously determined ET tube and OG tube are in good position. Despite the above interventions, pulse became thready. Norepinephrine drip was added. Despite this, pulse was lost again, requiring 2 more rounds of CPR and 2 more milligrams of epinephrine. ROSC was obtained yet again. It was decided at that point to take the patient to the Owner Operator Tanker Truck Driver. Lab Data 01/19/24 02:55 01/19/24 02:55 Radiology Impressions Chest X-Ray 01/19/24 03:22 IMPRESSION: 1. Successful placement of endotracheal tube and nasogastric tubes. 2. Possible minimal central vascular congestion. Laboratory Results WBC 17.38 10^3/uL (3.29-11.43) H 01/19/24 02:55 RBC 5.46 10^6/uL (3.85-5.65) 01/19/24 02:55 Hgb 16.40 g/dL (11.27-16.99) 01/19/24 02:55 Hct 47.8 % (37-53) 01/19/24 02:55 MCV 87.5 fl (82-101) 01/19/24 02:55 MCH 30.0 pg (27-33) 01/19/24 02:55 MCHC 34.3 g/dL (30-55) 01/19/24 02:55 RDW 13.3 % (12.1-15.1) 01/19/24 02:55 Plt Count 279 10^3/cmm (157-399) 01/19/24 02:55 MPV 11.6 fL (7.4-10.4) H 01/19/24 02:55 Neut % (Auto) 66.1 % 01/19/24 02:55 Lymph % (Auto) 25.0 % 01/19/24 02:55 Williamson % (Auto) 5.2 % 01/19/24 02:55 Eos % (Auto) 2.6 % 01/19/24 02:55 Baso % (Auto) 0.4 % 01/19/24 02:55 Neut # (Auto) 11.48 10^3/uL (1.8-7.7) H 01/19/24 02:55 Lymph # (Auto) 4.3 10^3/uL (0.8-4.8) 01/19/24 02:55 Williamson # (Auto) 0.9 10^3/uL (0.2-0.9) 01/19/24 02:55 Eos # (Auto) 0.5 10^3/uL (0.0-0.8) 01/19/24 02:55 Baso # (Auto) 0.1 10^3/uL (0.0-0.1) 01/19/24 02:55 Nucleated RBC % (auto) 0 % 01/19/24 02:55 Nucleated RBCs # 0.0 /100WBC 01/19/24 02:55 PT 13.50 SECONDS (12.1-14.9) 01/19/24 02:55 INR 1.00 (0.8-1.2) 01/19/24 02:55 APTT 27.8 SECONDS (23.9-36.7) 01/19/24 02:55 D-Dimer 0.30 ug/mLFEU (0-0.59) 01/19/24 02:55 Specimen Type Arterial 01/19/24 04:52 Sample Site Not specified 01/19/24 04:52 ABG pH 7.26 (7.35-7.45) L 01/19/24 04:52 ABG pCO2 39.8 mmHg (35-45) 01/19/24 04:52 ABG pO2 83.7 mmHg (80.0-100.0) 01/19/24 04:52 ABG PO2/FiO2 Ratio 83 01/19/24 04:52 ABG HCO3 17.7 mmol/L (22-26) L 01/19/24 04:52 ABG O2 Saturation 95.0 01/19/24 04:52 ABG Base Excess -8.9 mmol/L (-2.0-2.0) L 01/19/24 04:52 Ralf Test N/a 01/19/24 04:52 A-a O2 Gradient 75.7 mmHg (5-10) H 01/19/24 04:52 Hematocrit 42.5 % (42-52) 01/19/24 04:52 Hgb O2 Saturation 91.8 % (95-100) L 01/19/24 04:52 Carboxyhemoglobin 3.2 %THgb (0.4-20.1) 01/19/24 04:52 Methemoglobin 0.2 % (0.4-1.5) L 01/19/24 04:52 Total Hemoglobin 13.9 g/dL (14-18) L 01/19/24 04:52 Sodium 144.0 mmol/L (131-143) H 01/19/24 04:52 Potassium 3.3 mmol/L (3.5-5.0) L 01/19/24 04:52 Glucose 343.0 mg/dL (70-115) H 01/19/24 04:52 Ionized Calcium 0.9 mmol/L (1.1-1.4) L 01/19/24 04:52 O2 Delivery Device Ambu 01/19/24 04:52 FiO2 100.0 % 01/19/24 04:52 Nuclear Supervising Operator ID [email or web address] 01/19/24 04:52 Sodium 137 mmol/L (136-145) 01/19/24 02:55 Potassium 3.6 mmol/L (3.5-5.1) 01/19/24 02:55 Chloride 101 mmol/L (98-107) 01/19/24 02:55 Carbon Dioxide 22 mmol/L (22-29) 01/19/24 02:55 Anion Gap 17.6 (5-19) 01/19/24 02:55 BUN 16 mg/dL (6-20) 01/19/24 02:55 Creatinine 1.4 mg/dL (0.7-1.2) H 01/19/24 02:55 GFR Calculation 54.8 mL/min (90-130) L 01/19/24 02:55 Glucose 237 mg/dL (65-115) H 01/19/24 02:55 Calculated Osmolality 293 mOsm/kg (285-295) 01/19/24 02:55 Calcium 9.0 mg/dL (8.5-10.5) 01/19/24 02:55 Total Bilirubin 0.7 mg/dL (0.15-1.2) 01/19/24 02:55 AST 38 U/L (0-40) 01/19/24 02:55 ALT 24 U/L (0-41) 01/19/24 02:55 Alkaline Phosphatase 103 U/L (40-130) 01/19/24 02:55 Creatine Kinase 105 U/L (39-308) 01/19/24 02:55 Troponin T Baseline 8 ng/L (0-15) 01/19/24 02:55 NT-Pro-B Natriuret Pep 50 pg/mL (0-125) 01/19/24 02:55 Total Protein 6.2 g/dL (6.6-8.7) L 01/19/24 02:55 Albumin 4.2 g/dL (3.5-5.2) 01/19/24 02:55 Globulin 2.0 g/dL (1.3-4.6) 01/19/24 02:55 Lipase 43 U/L (13-60) 01/19/24 02:55 Ethyl Alcohol < 10 mg/dL (0-10) 01/19/24 02:55 All radiology interpretation(s) finalized by discharge Critical Care Time 2 Critical Care Time: Critical Care Time: Yes Total Critical Care Time: 60 Attestation: This case had a high probability of a clinically significant, sudden, or life threatening deterioration of this patient's condition which required my full and direct attention, intervention and personal management. Time does not include above procedures performed Discharge Plan Discharge Patient Disposition: Admitted As Inpatient Admit Provider: Marcelino Hernández Clinical Impression: ST elevation myocardial infarction (STEMI), Cardiac arrest due to underlying cardiac condition Condition: Critical Coding Level of Care Code ED Assistant Spa Director for Rubia Lynne
[2024-01-19] MEDS: vasopressin 40 UNIT/100 ML PREMIX IV ×2 (04:59→09:00)
[2024-01-19 05:02] LABS: ABG PCO2 39.8 mmHg (35-45); ABG PH Result 7.26 (7.35-7.45); Alveolar-Arterial Oxygen Gradi 75.7 mmHg (5-10); Arterial Blood Gas Hematocrit 42.5 % (42-52); Base Excess ABG -8.9 mmol/L (-2.0-2.0); Blood Gas Sample Site Not specified; Blood Gas Sample Type Arterial; Carboxyhemoglobin 3.2 %THgb (0.4-20.1); HCO3 ABG 17.7 mmol/L (22-26); HGB O2 Sat 91.8 % (95-100); Ionized Calcium Level - ABG 0.9 mmol/L (1.1-1.4); Methemoglobin 0.2 % (0.4-1.5); Oxygen Device AMBU; PO2 ABG 83.7 mmHg (80.0-100.0); PO2 FiO2 Ratio Arterial Blood 83; Potassium Level - ABG 3.3 mmol/L (3.5-5.0); Total Hemoglobin 13.9 g/dL (14-18)
--- NOTE | 2024-01-19 05:10 | PC.NURSE ---
This nurse was instructed by Dr Faria to give remainder of ketamine (300mg) to labor custodian nurse Aris RN in case that patient required medication. Witnessed by Clarisa HWANG.
--- NOTE | 2024-01-19 05:35 | PC.NURSE ---
Patient departed ED room 11 to Platform Loader at 0420.
[2024-01-19] MEDS: fentaNYL 1,000 MCG/100 ML BAG 5 MCG IV (05:36)
--- NOTE | 2024-01-19 06:21 | PC.NURSE ---
ORDER OF EVENTS OF PACING, INTUBATION, CODE, RECORDED BY CHECK AIRMAN WINIFRED HWANG AND DOCUMENTED INTO CHART BY ERI AVILA: 0320- 50 ma 70bpm 0335- 60 ma 70bpm 0327- 74bpm, 90%, BP 115/90 SEQUENCE OF INTUBATION 0328- 20 etomidate 0329- 100 succs 0329- patient intubated by Dr Faria, bilateral breath sounds auscultated ORDER OF CODE BLUE 0331- 1 epi given, CPR initiated 0333- pulse/rhythm check, V-Fib, 150J shock delivered 0334- 1 epi administer 0335- pulse palpated, CPR stopped 033- carotid present, femoral thready 0346- 0.2 Epi given, 0348- epi drip started, 4mg 0349- bicarb given 0351- 58bpm, 100%, BP 93/63 0352- heparin and plavix administered 0358- 0.5 epi, paced again @ 80ma, 70bpm 0400- increased epi @6mcg, IVF bolus, propofol started at 5mcg 0404- 90ma 0405- epi push, CPR resumed, BP 40/27 0407- rhythm check, no pulse, bicarb administered, epi @10mcg, norepi @12 0409- epi push 0410- rhythm check, heart 58, 93%, pulse faint 0410- 15mcg epi, 15mcg levo PATIENT LEFT ER ROOM 11 AT 0420 TO SENIOR NET DEVELOPER ARCHITECT WITH DR HERNANDEZ.
--- NOTE | 2024-01-19 06:26 | P.HP_ITS ---
Providers/Chief Complaint 2 Admitting Physician: Marcelino Hernández MD Primary Care Provider: Garrick Melgar DO Chief Complaint: CP History of Present Illness Corey Messina is a 43 year old male past medical history significant for hypertension hyperlipidemia continues two pack smoking abuse presented with ST elevation SC bradycardia to ER had witnessed cardiac arrest in the ER. Chain of events started when patient returned from work home immediately around 1: 30 AM started having chest pain called 911 he was noted to be obtunded lethargic with heart rate into 30s EKG was suggestive of inferior wall ST elevation SC, patient was transcutaneously paced given Versed and brought to ER. In the ER initial blood pressure was within normal limit but soon patient became lethargic obtunded dropped-down the heart rate given epi atropine later had V-fib arrest shocked out of the rhythm with defibrillation and started on amiodarone, I saw patient in the ER he was hypotensive postcardiac arrest and intubated, I myself and ER physician Dr. Drew along with ER and Customer Support Coordinator team continued resuscitating the patient since his blood pressure was not recordable, he was started on epi and Levophed drip given bicarb, another round of CPR was performed, bedside immediate echocardiogram confirmed no pericardial effusion and LV function near mild to moderately depressed 45% RV was not well- visualized, patient remained in critical condition therefore we decided to take the patient to Customer Support Coordinator, during transition and in the Customer Support Coordinator his blood pressure remains systolic anywhere between 50-90mmhg, multiple boluses of IV fluid were given, I also added vasopressin to the regimen, immediate access was obtained through the groin using common femoral venous and common femoral arterial approach, temporary pacemaker was floated with good capture, patient was paced around 100 bpm, left heart cath was performed which showed proximal 100% occluded RCA, it was crossed immediately with run-through wire multiple balloon angioplasty did not restore the flow, Pronto catheter was used for thrombectomy to restore perfusion, post reperfusion patient had V-fib arrest, he was defibrillated, CPR was performed for nearly 10 minutes ROSC was achieved, we immediately placed 3.0x38 mm drug-eluting stent which was postdilated with 3.5 x15mm noncompliant balloon for post dilation. Excellent angiographic result with PINEDA-3 flow was achieved. Left side revealed moderate circumflex mid 60% lesion there was no left main disease while LAD has mid 60 to 70% and distal high-grade 90% lesion which was not amenable to intervention due to small caliber of tapering vessel. Left ventriculography was performed which was suggestive of moderately depressed ejection fraction 45%, due to faulty hemodynamic channel, we were not able to record LVEDP. At this point final blood pressure was recorded around 90/45, patient remained on vent using ketamine for sedation. He was later transferred to the ICU, he completed and tolerated procedure without any further complication except V-fib arrest and 10 minutes of CPR. His neurological status remained guarded and his condition remains critical, patient was loaded with 600 mg of Plavix he was placed on Aggrastat bolus and drip. Will obtain echocardiogram, I will also contact hospitalist in [place] in [facility] for higher ICU care and possible consideration of RV Impella as it appeared to me patient has RV infarct due to RV failure he is in hypertension. Echocardiogram will be obtained as well. I have detailed discussion with the family members after the case including his son grandfather sister and rest of the family members, they all agreed and are satisfied with the care. Further plan will be advised as per progress of the patient. Review of Systems 2 Musc: Denies: joint warmth Medications/Allergies Home Medications Medication Instructions Recorded Confirmed Last Taken Type amlodipine 5 mg tablet 5 mg PO DAILY 01/19/24 01/19/24 Unknown History benazepril 40 mg tablet 40 mg PO DAILY 01/19/24 01/19/24 Unknown History lisinopril 40 mg tablet 40 mg PO DAILY 01/19/24 01/19/24 Unknown History Allergies Allergy/AdvReac Type Severity Reaction Status Date / Time No Known Allergies Allergy Verified 10/01/23 08:30 PFSH Acute 2 PFSH: Medical History (Updated 01/19/24 @ 10:00 by Roni Winter MD) Hypertension Allergic rhinitis due to allergen Otitis media of right ear Social History Smoking and tobacco/nicotine status: current every day tobacco/nicotine user cigarettes Packs smoked per day: 1.5 Alcohol intake: current Alcohol intake frequency: holidays/special occasions only Substance/Drug Use: never Vitals/I&O/Wt Last Vital Signs Pulse 85 01/19/24 04:12 Resp 23 H 01/19/24 04:10 BP 40/27 01/19/24 04:05 Pulse Ox 100 01/19/24 04:12 O2 Del Method Room Air 01/19/24 03:18 Weight last 48 hrs Weight 170 lb Physical Exam 2 Const: OTHER: GENERAL: Patient is intubated but tried to cough HEART: Regular S1 and S2. No murmur, rub or gallop. LUNGS: Decreased breath sound bilaterally. ABDOMEN: Soft, nontender and nondistended. Positive bowel sounds. No guarding, rebound or tenderness. CENTRAL NERVOUS SYSTEM: Sedated therefore cannot assess accurately EXTREMITIES: Lower extremities with out edema bilaterally. Pulses not palpable in the lower extremities Data 01/19/24 09:33 01/19/24 09:33 A&P Assessment and plan (1) Cardiac arrest due to underlying cardiac condition: Status post cardiac arrest as defined above, status post PCI to RCA with excellent angiographic result. Continue IV Aggrastat for next 8 hours, continue aspirin and statin and Plavix through OG tube. Continue IV fluid (2) Hypotension: As defined above patient will be on IV fluid, IV pressors, will consider RV Impella in case of RV failure not responding to conventional treatment despite of revascularization. (3) ST elevation myocardial infarction (STEMI): Status post PCI to RCA as defined above, patient had RV infarct at this point he appeared to be in RV failure, we will continue IV fluid and pressors, if blood pressure does not improve we will consider RV Impella which is not available here I may have to transfer the patient for that. Will touch base with [facility] or other hospital in the [place] Qualifiers: Involved coronary artery: right coronary artery Qualified Code(s): I 21.11 - ST elevation (STEMI) myocardial infarction involving right coronary artery (4) Nicotine dependence, cigarettes, with other nicotine-induced disorders: Will advise quitting smoking (5) Dyslipidemia: Start patient on statin Attestations 2 Medical Necessity Statement*: Patient require continuation hospitalization for above defined care Coding Level of Care Code Acute Code for Chg Fwd Diagnoses Cardiac arrest due to underlying cardiac condition I46.[address] elevation myocardial infarction (STEMI) I21.11 Involved coronary artery: right coronary artery Nicotine dependence, cigarettes, with other nicotine-induced disorders F17.218 Dyslipidemia E78.5
[2024-01-19] MEDS: heparin 5,000 unit/mL INJ 1 mL 4000 UNIT IVP (06:40)
[2024-01-19] MEDS: aspirin 81 mg Chew Tablet 324 MG PO (06:42)
[2024-01-19] MEDS: ketamine 100 mg/mL Inj 5 mL 400 MG IVP (06:42)
[2024-01-19] MEDS: EPINEPHrine 2.5 MG in sodium chloride 0.9% 250 ML 36.36 MG IV (06:52)
--- NOTE | 2024-01-19 06:53 | PC.RESP ---
Ekg at 0545 not done in excavation laborer code in progress.
[2024-01-19] MEDS: sodium chloride 0.9% 1,000 ML 999 ML IV (06:55)
[2024-01-19] MEDS: midazolam hcl 100 MG/100 ML BAG IV (06:59)
--- NOTE | 2024-01-19 07:00 | PC.NURSE ---
Addendum entered by Cindy Scherer RN 01/19/24 07:02: Witnessed waste 96 ml Propofol Original Note: Propofol Wasted: 96 ml Propofol wasted w/ ERI Espitia.
--- NOTE | 2024-01-19 07:05 | PC.NURSE ---
Addendum entered by Flora Molina RN 01/19/24 07:15: Vasopressin: Dr. Hernández gave verbal order for vasopressin in culture media laboratory assistant. Drip titrated greater up/down greater than protocol with approval from Dr. Hernández. Original Note: Fentanyl: Dr. Hernández gave verbal order for fentanyl drip in culture media laboratory assistant. Drip titrated up greater than protocol with approval from Dr. Hernández. See MAR for titrations.
[2024-01-19] MEDS: sodium chloride 0.9% 1,000 ML 200 ML IV ×2 (07:14→12:04)
[2024-01-19] MEDS: heparin 5,000 unit/mL INJ 1 mL 5000 UNIT SUBCUT (07:25)
--- NOTE | 2024-01-19 07:52 | PC.NURSE ---
Arrival to ICU 11: Arrived to ICU 11 @0557. Continuos cardiac monitoring continued. Pacemaker in R. Groin: Rate 70, mA 5, mV 4.
[2024-01-19] MEDS: norepinephrine 4 MG/250 ML BAG 52.5 MG IV (08:00)
--- NOTE | 2024-01-19 08:00 | PC.NURSE ---
Personal Belongings sent with [facility] S[facility] Phone number [phone]. Includes wallet, cellphone, knife, belt, socks, glasses. No stein present. Opened wallet in front of family and all witnesses that belongings are being sent with Ray.
--- NOTE | 2024-01-19 08:05 | USCV_ITS ---
Corey Messina Age: 43 Gender: M : 1980 Exam Date: 01/19/2024 12:41 Ordering Phys: Marcelino Hernández MD ([email or web address]) Technologist: Exam [place] [facility] [place]: mi BP: 132 / 76 HR: 3454 Rhythm: Sinus Technical Quality: Adequate MEASUREMENTS (Male / Female) Normal Values 2D ECHO LV Diastolic Diameter PLAX 3.2 cm 4.2 - 5.9 / 3.9 - 5.3 cm IVS Diastolic Thickness 1.2 cm 0.6 - 1.0 / 0.6 - 0.9 cm IVS Systolic Thickness 1.4 cm LVPW Diastolic Thickness 1.2 cm 0.6 - 1.0 / 0.6 - 0.9 cm LVPW Systolic Thickness 1.4 cm LVOT Diameter 2.1 cm LV Ejection Fraction 2D Teich 12.6 % LV Ejection Fraction MOD 4C 46.5 % LV Ejection Fraction MOD 2C 40.7 % LV Ejection Fraction 2C AL 42.4 % LA Diameter 2.6 cm M-MODE LA Ao Ratio MM 1.0 AV Cusp Separation MM 2.5 cm DOPPLER AV Peak Velocity 51.0 cm/s LVOT Peak Velocity 76.0 cm/s AV Area Cont Eq vti 5.4 cm squared AV Area Cont Eq pk 5.2 cm squared MV Area PHT 7.3 cm squared Mitral E to A Ratio 3.5 TR Peak Velocity 52.0 cm/s TR Peak Gradient 1.1 mmHg Right Atrial Pressure 3.0 mmHg Pulmonary Artery Systolic Pressu 4.1 mmHg PV Peak Velocity 69.0 cm/s FINDINGS Left Ventricle Normal left ventricular cavity size. Severely decreased left ventricular systolic function. Global left ventricular hypokinesis with regional wall motion abnormality as septal anterior and apical wall is severely hypokinetic. Left ventricular ejection fraction is estimated at 35-40 %. Grade III/IV diastolic dysfunction (restrictive filling pattern), severely elevated filling pressures. Right Ventricle Mildly increased right ventricular size. Severely decreased right ventricular systolic function. Right Atrium The right atrium is normal in size. Left Atrium The left atrium is normal in size. Mitral Valve Mildly thickened mitral valve. No mitral valve stenosis. Trace mitral valve regurgitation. Aortic Valve Moderate aortic valve calcification. No aortic valve stenosis. Trace aortic valve regurgitation. Tricuspid Valve Mild tricuspid valve regurgitation. Pulmonic Valve Trace pulmonary valve regurgitation. Pericardium Normal pericardium without effusion. Aorta Normal ascending aorta dimension. IVC The inferior vena cava appears normal. CONCLUSIONS Normal left ventricular cavity size. Severely decreased left ventricular systolic function. Global left ventricular hypokinesis with regional wall motion abnormality as septal anterior and apical wall is severely hypokinetic. Left ventricular ejection fraction is estimated at 35-40 %. Grade III/IV diastolic dysfunction (restrictive filling pattern), severely elevated filling pressure Mildly increased right ventricular size. Severely decreased right ventricular systolic function. There is no pericardial effusion. No significant valve abnormalities. Insufficient tricuspid jet to measure pulmonary pressure No prior echo exam to compare Marcelino Hernández MD (Electronically Signed) Final Date: 19 January 2024 18:52 S
[2024-01-19] MEDS: pantoprazole 40 mg SDV IVP (08:38)
--- NOTE | 2024-01-19 09:33 | ECG_ITS ---
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 Measurements Intervals [place] Rate: 93 P: 0 TN: 0 QRS: -46 QRSD: 79 T: 228 QT: 383 QTc: 479 Interpretive Statements ATRIAL FIBRILLATION WITH ABERRANT CONDUCTION OR VENTRICULAR PREMATURE COMPLEXES LOW QRS VOLTAGE IN PRECORDIAL LEADS [QRS DEFLECTION < 1.0 mV IN CHEST LEADS] POSSIBLE RIGHT VENTRICULAR CONDUCTION DELAY [RSR (QR) IN V1/V2] ANTERIOR MYOCARDIAL INFARCTION , OF INDETERMINATE AGE [40+ ms Q WAVE AND/OR ST/T ABNORMALITY IN V3/V4].MODERATE T-WAVE ABNORMALITY, CONSIDER LATERAL ISCHEMIA [-0.1+ mV T-WAVE IN I/aVL/V5/V6].Compared to ECG 01/19/2024 03:34:55 Ventricular premature complex(es) now present.Aberrant conduction of supraventricular beat(s) now present.Low QRS voltage now present T-wave abnormality now present.Possible ischemia now present Sinus rhythm no longer present'First degree AV block no longer present ST (T wave) deviation no longer present Myocardial infarct finding still present Electronically Signed On 01-20-2024 01:21:15 CDT by Jacki Plunkett M.D. [email or web address]
--- NOTE | 2024-01-19 09:44 | P.HP_ITS ---
Providers/Chief Complaint 2 Admitting Physician: Marcelino Hernández MD Primary Care Provider: Garrick Melgar DO Chief Complaint: CP History of Present Illness Corey Messina is a 43 year old male presenting to the emergency department earlier this morning, with ST elevation and significant bradycardia. He was promptly evaluated, cardiology called, secondary to chest discomfort transcutaneous pacing was initiated with Versed for sedation. ST elevation was already noted in the field and STEMI was called prior to the patient's arrival. He was urgently taken to the angiogram suite where transvenous pacing was initiated, RSI for enervation used. CPR was initiated during this time, 1 mg of epinephrine given, V-fib noted on the monitor and patient defibrillated. Patient was then given a second dose of epinephrine, amiodarone, and an epinephrine drip was ordered. Following this an OG was placed, heparin Plavix and aspirin given through OG, and patient was being prepped for the Auto Slip Cover Installer. He then lost pulse again requiring 2 more rounds of CPR and 2 more milligrams of epinephrine. Medications/Allergies Home Medications Medication Instructions Recorded Confirmed Last Taken Type amlodipine 5 mg tablet 5 mg PO DAILY 01/19/24 01/19/24 Unknown History benazepril 40 mg tablet 40 mg PO DAILY 01/19/24 01/19/24 Unknown History lisinopril 40 mg tablet 40 mg PO DAILY 01/19/24 01/19/24 Unknown History Allergies Allergy/AdvReac Type Severity Reaction Status Date / Time No Known Allergies Allergy Verified 10/01/23 08:30 PFSH Acute 2 PFSH: Medical History (Updated 01/19/24 @ 07:21 by Marcelino Hernández MD) Allergic rhinitis due to allergen Otitis media of right ear Social History Smoking and tobacco/nicotine status: current every day tobacco/nicotine user cigarettes Packs smoked per day: 1.5 Alcohol intake: current Alcohol intake frequency: holidays/special occasions only Substance/Drug Use: never Vitals/I&O/Wt Last Vital Signs Temp 97.3 F L 01/19/24 08:00 Pulse 120 H 01/19/24 08:00 Resp 16 01/19/24 08:20 BP 114/86 01/19/24 08:00 Pulse Ox 100 01/19/24 08:20 O2 Del Method Mechanical Ventilation 01/19/24 07:30 FiO2 100 01/19/24 08:20 01/18/24 01/19/24 01/19/24 22:59 06:59 14:59 Intake Total . 1288.510 / 1288.510 Balance 1288.510 / 1288.510 Weight last 48 hrs Weight 73.346 kg Weight 77.111 kg Data 01/19/24 02:55 01/19/24 02:55 Coding Level of Care Code Acute Code for Chg Fwd
--- NOTE | 2024-01-19 09:53 | P.CONIM_ITS ---
Providers/Reason For Consult 2 Consulting Physician/Specialty*: Roni Winter MD, hospitalist Reason for Consult*: Vent management Requesting Physician: Dr. Hernández Attending Physician: Marcelino Hernández MD Primary Care Provider: Garrick Melgar DO History of Present Illness History of Present Illness Corey Messina is a 43 year old male Corey Messina is a 43 year old male presenting to the emergency department earlier this morning, with ST elevation and significant bradycardia. He was promptly evaluated, cardiology called, secondary to chest discomfort transcutaneous pacing was initiated with Versed for sedation. ST elevation was already noted in the field and STEMI was called prior to the patient's arrival. He was urgently taken to the angiogram suite where transvenous pacing was initiated, RSI for enervation used. CPR was initiated during this time, 1 mg of epinephrine given, V-fib noted on the monitor and patient defibrillated. Patient was then given a second dose of epinephrine, amiodarone, and an epinephrine drip was ordered. 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 He then lost pulse again requiring 2 more rounds of CPR and 2 more milligrams of epinephrine. Levophed was added, bedside echo demonstrated EF around 50 to 55%. Angiogram demonstrated a proximally occluded RCA, thrombectomy was performed, patient required resuscitation for V- fib arrest, drug-eluting stent was performed, and PINEDA-3 blood flow restored. Left side demonstrated moderate circumflex lesion of 60%, while LAD had a mid 60 to 70% and distal high-grade 90%. He was transferred to the ICU. I have been consulted for vent management, and coordination of care. Review of Systems 2 General: Reports: ROS unobtainable due to endotracheal tube Medications/Allergies Home Medications Medication Instructions Recorded Confirmed Last Taken Type amlodipine 5 mg tablet 5 mg PO DAILY 01/19/24 01/19/24 Unknown History benazepril 40 mg tablet 40 mg PO DAILY 01/19/24 01/19/24 Unknown History lisinopril 40 mg tablet 40 mg PO DAILY 01/19/24 01/19/24 Unknown History Allergies Allergy/AdvReac Type Severity Reaction Status Date / Time No Known Allergies Allergy Verified 10/01/23 08:30 Current Medications Generic Name Dose Route Start Last Admin Trade Name Freq PRN Reason Stop Dose Admin Clopidogrel Bisulfate 75 mg 01/19/24 09:00 01/19/24 08:08 Clopidogrel 75 Mg Tablet PO Not Given DAILY MICHAEL Heparin Sodium (Porcine) 5,000 unit 01/19/24 06:30 01/19/24 07:25 Heparin 5,000 Unit/Ml Inj 1 Ml SUBCUT 5,000 unit Q8H MICHAEL Administration Propofol 1,000 mg in 100 mls @ 0 mls/hr 01/19/24 03:45 01/19/24 05:57 Diprivan IV Infused .Q0M MICHAEL Titration Protocol Per Protocol Epinephrine HCl 2.5 mg/ Sodium 252.5 mls @ 0 mls/hr 01/19/24 04:00 01/19/24 07:08 Chloride IV Infused .Q0M MICHAEL Titration Protocol Per Protocol Norepinephrine Bitartrate 4 mg in 250 mls @ 0 mls/hr 01/19/24 04:00 01/19/24 08:45 Levophed IV 20 mcg/min .Q0M MICHAEL 75 mls/hr Titration Protocol Per Protocol Fentanyl 1,000 mcg in 100 mls @ 0 mls/hr 01/19/24 05:30 01/19/24 08:00 Sublimaze IV 150 mcg/hr .Q0M MICHAEL 15 mls/hr Titration Protocol Per Protocol Sodium Chloride 1,000 mls @ 200 mls/hr 01/19/24 06:30 01/19/24 07:14 Sodium Chloride 0.9% IV 200 mls/hr .Q5H MICHAEL Administration Midazolam HCl 100 mg in 100 mls @ 0 mls/hr 01/19/24 07:00 01/19/24 08:00 Versed IV 3 mg/hr .Q0M MICHAEL 3 mls/hr Titration Protocol Per Protocol Vasopressin 40 unit in 100 mls @ 0 mls/hr 01/19/24 07:15 01/19/24 09:00 Vasostrict IV 0.01 unit/min .Q0M MICHAEL 1.5 mls/hr Administration Protocol Per Protocol Pantoprazole Sodium 40 mg 01/19/24 09:00 01/19/24 08:38 Pantoprazole 40 Mg Sdv IVP 40 mg DAILY MICHAEL Administration PFSH Acute 2 PFSH: Medical History (Updated 01/19/24 @ 10:00 by Roni Winter MD) Hypertension Allergic rhinitis due to allergen Otitis media of right ear Social History Smoking and tobacco/nicotine status: current every day tobacco/nicotine user cigarettes Packs smoked per day: 1.5 Alcohol intake: current Alcohol intake frequency: holidays/special occasions only Substance/Drug Use: never Vitals/I&O/Wt Last Vital Signs Temp 97.3 F L 01/19/24 08:00 Pulse 120 H 01/19/24 08:00 Resp 16 01/19/24 08:20 BP 114/86 01/19/24 08:00 Pulse Ox 100 01/19/24 08:20 O2 Del Method Mechanical Ventilation 01/19/24 07:30 FiO2 100 01/19/24 08:20 01/18/24 01/19/24 01/19/24 22:59 06:59 14:59 Intake Total 24.917 / 24.917 1288.510 / 1288.510 Balance 24.917 / 24.917 1288.510 / 1288.510 Weight last 48 hrs Weight 73.346 kg Weight 77.111 kg Physical Exam 2 Narrative: General Exam demonstrates an intubated and sedated white male, who is hypotensive on 20 of norepinephrine and vasopressin HEENT: Pupils equally round. Oropharynx demonstrates endotracheal tube. Vent settings reviewed. Currently still on 100% FiO2. Tidal volume 450, respiratory rate 16, PEEP 8 Neck supple no lymphadenopathy Cardiovascular tachycardic, irregular Lungs clear Abdomen soft, no obvious organomegaly exam demonstrates Mack, sheath is noted right groin Extremities no cyanosis clubbing. Cool to touch. Pulses difficult to palpate Data 01/19/24 02:55 01/19/24 02:55 Other Labs: Last ABG demonstrated pH 7.26, pCO2 40, pO2 of 84 on 100% FiO2. LFTs on admission were normal Lipase was 43 Calcium normal Chest x-ray no obvious infiltrate, endotracheal tube 2 cm above esau. Last EKG demonstrates atrial fibrillation, left axis deviation, flipped T waves V5 4 through 6, poor R wave progression cannot rule out anterior OH, flipped T waves laterally. No ST elevation is present on this EKG. 1 PVC is noted. I have ordered a repeat EKG. A&P Assessment and plan (1) ST elevation myocardial infarction (STEMI): Patient presented with STEMI, with significant bradycardia. There is great concern for RV infarct. He has received Plavix, aspirin, drug-eluting stent RCA, and is currently on tirobifan. Cardiology has been visiting with the family. Secondary to the significant need for pressors, there is concern of need for RV Impella. They are arranging transfer. Qualifiers: Involved coronary artery: right coronary artery Qualified Code(s): I 21.11 - ST elevation (STEMI) myocardial infarction involving right coronary artery (2) Cardiac arrest due to underlying cardiac condition: Patient has had multiple cardiac arrests He has had a V-fib arrest He is currently in A-fib, with multiple ectopies Repeat electrolytes, magnesium Initiate amiodarone. I discussed in detail with cardiology They are doing stat echo They are placing a left-sided Impella, to increase stability of potential transfer for RV Impella (3) Hypotension: Patient's with significant hypotension Continue norepinephrine Vasopressin was added Consider epinephrine, should the above fail He is currently receiving fluids at approximately 300 cc an hour, but fluid bolus could still be entertained considering his RV infarct and that he is still able to oxygenate on current vent settings. (4) Respiratory failure with hypoxia: Patient with acute respiratory failure secondary to RV infarct Continue current endotracheal intubation, ventilator settings, wean FiO2 as tolerated Plan Atrial fibrillation. Initiated amiodarone drip, check electrolytes, check TSH Thank you for this consultation, we will continue to follow with you Consult Attestations 2 Medical Necessity Statement: As per primary Critical Care Time: The high probability of a clinically significant, sudden or life threatening deterioration of the patient's [cardiac, pulmonary] system(s) required my full and direct attention, intervention and personal management. The critical care time is as shown. This time is in addition to time spent performing any reported procedures but includes the following: [x] Data and vital sign review and interpretation [x] Patient assessment, examination and intervention [x] Documentation [x] Medication orders and management Critical Care Time (min): 53 Coding Level of Care Code Critical Care >/= 30 minutes Critical care time (in minutes): 53 The high probability of a clinically significant, sudden or life threatening deterioration, as referenced in this documentation, required my full and direct attention, intervention and personal management. The critical care time shown is in addition to time spent performing any reported separately billable procedures and includes the following: [x] Data and vital sign review and interpretation [x ] Patient assessment, examination and intervention [x] Medication orders and management [x] Patient/Family updates as able [x] Care Coordination and Documentation. Diagnoses ST elevation myocardial infarction (STEMI) I21.11 Involved coronary artery: right coronary artery Cardiac arrest due to underlying cardiac condition I46.2 Hypotension I95.9 Respiratory failure with hypoxia J96.91 Time Spent (min) 53
[2024-01-19] MEDS: fentaNYL 1,000 MCG/100 ML BAG 15 MCG IV (10:00)
[2024-01-19 10:05] LABS: Basophils # 0.1 10^3/uL (0.0-0.1); Basophils % 0.4 %; Eosinophils # 0.5 10^3/uL (0.0-0.8); Eosinophils % 1.8 %; Hematocrit 47.9 % (37-53); Lymphocytes # 4.1 10^3/uL (0.8-4.8); Lymphocytes % 15.8 %; Mean Corpuscular Hemoglobin 29.8 pg (27-33); Mean Corpuscular Volume 92.1 fl (82-101); Mean Platelet Volume 12.4 fL (7.4-10.4); Monocytes # 1.4 10^3/uL (0.2-0.9); Monocytes % 5.2 %; Neutrophils # 19.75 10^3/uL (1.8-7.7); Neutrophils % 75.7 %; Nucleated Red Blood Cells % 0 %; Platelet Count 251 10^3/cmm (157-399); Red Cell Distribution Width 13.5 % (12.1-15.1)
--- NOTE | 2024-01-19 10:06 | XACV_ITS ---
Exam Room: ICU11 Ht: 170 cm Wt: 77 kg BSA: 1.92 m2 Gender: Male : 1980 Exam Priority: Routine Procedure(s): Procedure Description: Diagnostic procedure Procedure Description: Miscellaneous Diagnostic Cath Status: Emergency Diagnostic Findings * Indication for bringing back to the [employer]: For left-sided Impella placement for hemodynamic instability cardiogenic shock status post PCI to RCA for ST elevation NC. Patient is on 3 pressors despite of that his systolic blood pressure is not improving. Patient has left ventricle ejection fraction 40% Indication for peripheral angiogram: Assessment of iliac arteries and peripheral arteries for any vascular disease, to place Impella CP for cardiogenic shock not responding to conventional pressors. Catheters used:: Pigtail 5 FrenchAbdominal aortogram: Luminal irregularities Right renal artery: Not visualized it was above the catheter Left renal artery Not visualized it was above the catheterRight common iliac: Luminal regularities with mild to moderate diffuse disease Right external iliac luminal regularities: With mild to moderate diffuse disease Right internal iliac luminal irregularities: Right common femoral artery luminal irregularity, it was visualized up to the distal segment as we ran out of contrast Right profundofemoral artery luminal irregularitiesLeft common iliac artery: Relatively bigger vessel in its origin and mid segment but has diffuse luminal irregularities Left external iliac artery has luminal irregularity Left internal iliac artery has luminal irregularity Left common femoral artery has luminal irregularity Left profundofemoral artery has luminal irregularity Left SFA artery has proximal ostial 50 to 60% stenosis rest of vessel luminal irregularity, beyond mid segment vessel was not visualized due to running out of contrast.Common iliac size with not more than 6 mm and there is diffuse disease therefore we will not proceed with left sided Impella during the transfer as he appeared to be more stable now. Patient will be transferred for right-sided Impella to [facility] since we get the bed confirmation. Conclusions 1. Small caliber bilateral common iliacs, mild to moderate disease noted in the right common external and internal iliac artery by placement of 14 [place] Impella sheath it may can cause leg ischemia therefore at this point we will defer Impella placement. 6 [place] sheath will be sutured and patient will be transferred to [facility] for RV Impella placement. Recommendations * Usual post peripheral angiogram. Interventional RX Recommendation: other cardiac therapy w/o CABG/PCI Anticoagulation: Heparin Pressures Phase:Rest AO : 94 / 64 ( 72 ) @ 11:50:00 AM 92 / 64 ( 72 ) @ 11:55:00 AM 82 / 71 ( 76 ) @ 12:13:00 PM PA : 36 / 19 ( 25 ) @ 11:59:00 AM PCW : a wave = 21 v wave = 24 mean = 20 @ 12:00:00 PM Clinical Evaluation EBL: 5mL-10mL Procedural Details Pre-Procedure Time Out. Identified patient by full name and date of as verbalized by the patient/guarantor. Does the consent match the physician's order: N/A Emergent. Accurate & Complete Informed Consent: N/A Emergent. Inpatient/Outpatient History & Physical on Chart: N/A Emergent. If H&P is completed, is and addenduem needed: N/A Emergent; If yes, is the addendum complete: N/A Emergent. Visualize and Verify Site with Patient/Guarantor: N/A. Relevant Radiology Images available: N/A Emergent. Pre-op teaching completed and patient verbalized understanding. The risks, benefits, and alternatives of sedation and/or procedure were discussed by physician. The patient agrees to continue. Procedure started. [facility] Clinical Fraility Score: 7: Severely Frail. [employer]alls Indications: Other. Baseline sample Acquired. HR: 98 BPM. Physician arrived. Pulse is doppled. Physician scrubbed in. Immediate Pre-Procedure Time Out. Correct Patient: N/A Emergent; Correct Procedure: N/A Emergent; Correct Site: N/A Emergent; Correct Patient Position: N/A Emergent; Correct Supplies: N/A Emergent; Dried Flammable Prep: N/A Emergent; Blood Products Available: N/A Emergent;. Lidocaine 1% infiltrated to the left groin. Venous access obtained with a micropuncture set. Sheath upsized to a 8 Fr. Sheath upsized to a 12 Fr. [place]-Anuradha DISTRIBUTION TECH catheter inserted. [place] wire inserted through the swan catheter. Wire and [place] removed. [place]-Anuradha DISTRIBUTION TECH catheter inserted. The patient arrived to the [facility] from ICU with a Vasopressin, a Epipenephrine, a Norepinephrine, a Fentanyl and a Versed drips. [place]ur[place]ha out. [place]Anuradha MON catheter inserted. A Right femoral angiogram was performed to determine safe placement of closure device. Ultrasound called to measure femoral arteries. A 5 arabic Angled Pig catheter in over wire through the right femoral arterial sheath. Catheter removed over the standard wire. The 6Fr right arterial sheath exchanged for a new 6FR sheath. A 5 arabic Angled Pig catheter in over wire. Abdominal aortogram performed in AP @ 10 mL/sec for a total of 30 mL. Ultrasound arrived. A Suture was successful obtaining hemostatsis at the Left Femoral vein insertion site. Physician scrubbed out. Vital chart was stopped. Estimated blood loss: 5mL-10mL. Nausea/Vomiting: No. Procedure completed. Patient transferred by bed to ICU. Access Site Site: Left Femoral vein Sheath Size: 6 Fr Hemostasis Method: Suture Hemostasis Success: Successful I, the attending physician, have reviewed and verified all procedure medications. Yes, all medications given per verbal order History/Risk Factors Hypertension: No Dyslipidemia: No Peripheral Arterial Disease (PAD): No Myocardial Infarction (NC): No Obesity: No Renal Disease: No Prior Interventions PCI: Yes CABG: No Valve Surgery: No Date of PCI: 01/19/2024 Report Signatures Finalized by Marcelino Hernández MD on 02/28/2024 07:49 PM
[2024-01-19 10:15] LABS: Mean Corpuscular HGB Conc 32.4 g/dL (30-55)
[2024-01-19 10:21] LABS: ABG PCO2 45.5 mmHg (35-45); ABG PH Result 7.31 (7.35-7.45); Alveolar-Arterial Oxygen Gradi 75.5 mmHg (5-10); Arterial Blood Gas Hematocrit 46.4 % (42-52); Base Excess ABG -3.5 mmol/L (-2.0-2.0); Blood Gas Operator Identificat GD; Blood Gas Sample Site Not specified; Blood Gas Sample Type Arterial; Blood Gas Tidal Volume 0.45; Carboxyhemoglobin 0.9 %THgb (0.4-20.1); HCO3 ABG 22.9 mmol/L (22-26); Ionized Calcium Level - ABG 1.1 mmol/L (1.1-1.4); Methemoglobin 0.1 % (0.4-1.5); Oxygen Device VENT; PO2 ABG 80.7 mmHg (80.0-100.0); PO2 FiO2 Ratio Arterial Blood 80; Total Hemoglobin 15.1 g/dL (14-18)
--- NOTE | 2024-01-19 10:30 | W.PM.OPSUD ---
Surgery/Procedure H&P Update DATE OF PROCEDURE: January 19, 2024 DATE H&P PERFORMED: 01/19/24 H&P UPDATE INFORMATION: I have reviewed H&P completed within last 30 days, I have examined patient prior to procedure and Changes to prior documentation as noted here CHANGES TO PREVIOUS DOCUMENTATION: Cardiac shock PLANNED PROCEDURE: Operation Date: 01/19/24 04:00 Proposed Procedures p Cardiac Catheterization(Not Applicable) - Marcelino Hernández MD Patient has been intubated PATIENT REASSESSED PRIOR TO SEDATION, WITH NO CHANGE NOTED: Yes AIRWAY EVAL/ANESTHESIA PLAN: Monitored Anesthesia, Risks, benefits & alternatives of sedation and/or procedure discussed and Patient agrees to continue as planned (Family agreed)
[2024-01-19 10:48] LABS: Alanine Aminotransferase 221 U/L (0-41); Albumin Level 3.1 g/dL (3.5-5.2); Alkaline Phosphatase 90 U/L (40-130); Blood Urea Nitrogen 18 mg/dL (6-20); Calcium 7.2 mg/dL (8.5-10.5); Carbon Dioxide 20 mmol/L (22-29); Chloride 107 mmol/L (98-107); Globulin 1.8 g/dL (1.3-4.6); Glomerular Filtration Rate 54.8 mL/min (90-130); Glucose 149 mg/dL (65-115); Magnesium 1.7 mg/dL (1.7-2.3); Osmolality Calculated 293 mOsm/kg (285-295); Sodium 139 mmol/L (136-145); Thyroid Stimulating Hormone 0.81 uIU/mL (0.27-4.20); Total Bilirubin 0.6 mg/dL (0.15-1.2); Total Protein 4.9 g/dL (6.6-8.7)
[2024-01-19 10:50] LABS: Creatinine Clr Calc Pharmacy 65.0283
[2024-01-19 10:52] LABS: Anion Gap 16.1 (5-19); Potassium 4.1 mmol/L (3.5-5.1)
[2024-01-19 10:54] LABS: Aspartate Amino Transferase 481 U/L (0-40)
[2024-01-19 11:27] LABS: Partial Thromboplastin Time 106.6 SECONDS (23.9-36.7)
--- NOTE | 2024-01-19 11:28 | USCV_ITS ---
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 It was found to be 0.9 cm in diameter. No hematoma or pseudoaneurysm were noted around this vessel. Minimal plaques were noted in the vessel CONCLUSIONS Patent left common femoral artery measuring 0.9 cm in diameter Minimal plaques were noted in the vessel. Revised copy of the test results from 01/19/2024 Dr Jacki Plunkett MD [facility] (Electronically Signed) Final Date: 03 February 2024 08:06 Amended: 03 February 2024 08:10 C
[2024-01-19 11:38] LABS: Troponin 5 6HR Delta 9992.00001 ng/L (0-12)
[2024-01-19 11:39] LABS: Troponin 5 6HR > 10000 ng/L (0-15)
[2024-01-19] MEDS: amiodarone 150 MG/100 ML PREMIX 400 MG IV (12:03)
--- NOTE | 2024-01-19 12:03 | P.TS_ITS ---
Transfer Summary Providers Date of Admission: 01/19/24 06:12 Date of Discharge/Transfer: 02/28/24 Attending Provider at Admission: Marcelino Hernández MD Attending Provider at Transfer: Marcelino Hernández MD Consults: Corey Messina is a 43 year old male past medical history significant for hypertension hyperlipidemia continues two pack smoking abuse presented with ST elevation AR bradycardia to ER had witnessed cardiac arrest in the ER. Chain of events started when patient returned from work home immediately around 1: 30 AM started having chest pain called 911 he was noted to be obtunded lethargic with heart rate into 30s EKG was suggestive of inferior wall ST elevation AR, patient was transcutaneously paced given Versed and brought to ER. In the ER initial blood pressure was within normal limit but soon patient became lethargic obtunded dropped-down the heart rate given epi atropine later had V-fib arrest shocked out of the rhythm with defibrillation and started on amiodarone, I saw patient in the ER he was hypotensive postcardiac arrest and intubated, I myself and ER physician Dr. Drew along with ER and Information Manager team continued resuscitating the patient since his blood pressure was not recordable, he was started on epi and Levophed drip given bicarb, another round of CPR was performed, bedside immediate echocardiogram confirmed no pericardial effusion and LV function near mild to moderately depressed 45% RV was not well- visualized, patient remained in critical condition therefore we decided to take the patient to Information Manager, during transition and in the Information Manager his blood pressure remains systolic anywhere between 50-90mmhg, multiple boluses of IV fluid were given, I also added vasopressin to the regimen, immediate access was obtained through the groin using common femoral venous and common femoral arterial approach, temporary pacemaker was floated with good capture, patient was paced around 100 bpm, left heart cath was performed which showed proximal 100% occluded RCA, it was crossed immediately with run-through wire multiple balloon angioplasty did not restore the flow, Pronto catheter was used for thrombectomy to restore perfusion, post reperfusion patient had V-fib arrest, he was defibrillated, CPR was performed for nearly 10 minutes ROSC was achieved, we immediately placed 3.0x38 mm drug-eluting stent which was postdilated with 3.5 x15mm noncompliant balloon for post dilation. Excellent angiographic result with PINEDA-3 flow was achieved. Left side revealed moderate circumflex mid 60% lesion there was no left main disease while LAD has mid 60 to 70% and distal high-grade 90% lesion which was not amenable to intervention due to small caliber of tapering vessel. Left ventriculography was performed which was suggestive of moderately depressed ejection fraction 45%, due to faulty hemodynamic channel, we were not able to record LVEDP. At this point final b lood pressure was recorded around 90/45, patient remained on vent using ketamine for sedation. He was later transferred to the ICU, he completed and tolerated procedure without any further complication except V-fib arrest and 10 minutes of CPR. His neurological status remained guarded and his condition remains critical, patient was loaded with 600 mg of Plavix he was placed on Aggrastat bolus and drip. 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 Echocardiogram will be obtained as well. I have detailed discussion with the family members after the case including his son grandfather sister and rest of the family members, they all agreed and are satisfied with the care. Further plan will be advised as per progress of the patient. Since patient condition continues to deteriorate on 3 pressors he remains hypotensive we took patient back to Information Manager to see whether if we can place Impella on the left side to stabilize his course of transfer as recommended by [facility] in [facility] but because of severe peripheral vascular disease and small caliber iliac and common femoral arteries Impella placement can lead to limb ischemia, [place] was also floated for hemo dynamics at the moment pulmonary capillary wedge pressure is 19 and PA mean is 25 mmHg. At the moment patient has right common femoral sheath [address], right common femoral vein 6 [place] sheath with temporary pacemaker in place, temporary pacemaker settings are 70 bpm as a backup rate, and left side 12 [place] common femoral venous sheath was placed it was initially placed to accommodate ICU [place] however because of tortuosity and bad angle were not able to float ICU [place] therefore it was switched for cath labs [place]. We have obtained permission from bed and will be transferring the patient for a right-sided Impella for severe right-sided heart failure and RV infarct to improve hemodynamic stability. Primary Care Provider: Garrick Melgar DO Transfer Plans: Anticipated date of transfer: 02/28/24 . Diagnoses at Discharge Discharge Diagnosis (1) Cardiac arrest due to underlying cardiac condition: Status: Acute (2) Hypotension: Status: Acute (3) ST elevation myocardial infarction (STEMI): Status: Acute Qualifiers: Involved coronary artery: right coronary artery Qualified Code(s): I21.11 - ST elevation (STEMI) myocardial infarction involving right coronary artery (4) Nicotine dependence, cigarettes, with other nicotine-induced disorders: Status: Acute (5) Dyslipidemia: Status: Chronic Reason for Visit Reason for Visit CP Physical Exam Const: OTHER: GENERAL: Patient is intubated and sedated NECK: No jugular vein distension. HEENT: No cyanosis. No icterus. No pallor. HEART: Regular S1 and S2. No murmur, rub or gallop. LUNGS: Clear to auscultate bilaterally. ABDOMEN: Soft, nontender and nondistended. Positive bowel sounds. No guarding, rebound or tenderness. CENTRAL NERVOUS SYSTEM: Grossly nonfocal. EXTREMITIES: Lower extremities with out edema bilaterally. 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 echo complete* [id number] Routine Ultrasound 01/19/24 08:05 Ordered US arterial duplex groin LT [CV arterial dup groin LT Ultrasound 01/19/24 11:28 Ordered [id number]] Routine Completed Studies During Hospitalization Category Date Time Status XR chest 1V portable [id number] Stat Exams 01/19/24 03:22 Completed Laboratory Last Values WBC 26.10 10^3/uL (3.29-11.43) H 01/19/24 09:33 RBC 5.20 10^6/uL (3.85-5.65) 01/19/24 09:33 Hgb 15.50 g/dL (11.27-16.99) 01/19/24 09:33 Hct 47.9 % (37-53) 01/19/24 09:33 MCV 92.1 fl (82-101) D 01/19/24 09:33 MCH 29.8 pg (27-33) 01/19/24 09: MCHC 32.4 g/dL (30-55) D 01/19/24 09: RDW 13.5 % (12.1-15.1) 01/19/24 09:33 Plt Count 251 10^3/cmm (157-399) 01/19/24 09: MPV 12.4 fL (7.4-10.4) H 01/19/24 09:33 Neut % (Auto) 75.7 % 01/19/24 09: Lymph % (Auto) 15.8 % 01/19/24 09: [place] % (Auto) 5.2 % 01/19/24 09: Eos % (Auto) 1.8 % 01/19/24 09:33 Baso % (Auto) 0.4 % 01/19/24 09:33 Neut # (Auto) 19.75 10^3/uL (1.8-7.7) H 01/19/24 09:33 Lymph # (Auto) 4.1 10^3/uL (0.8-4.8) 01/19/24 09:33 [place] # (Auto) 1.4 10^3/uL (0.2-0.9) H 01/19/24 09: Eos # (Auto) 0.5 10^3/uL (0.0-0.8) 01/19/24 09:33 Baso # (Auto) 0.1 10^3/uL (0.0-0.1) 01/19/24 09: Nucleated RBC % (auto) 0 % 01/19/24 09: Nucleated RBCs # 0.0 /100WBC 01/19/24 09:33 PT 13.50 SECONDS (12.1-14.9) 01/19/24 02:55 INR 1.00 (0.8-1.2) 01/19/24 02:55 APTT 106.6 SECONDS (23.9-36.7) H D 01/19/24 09:33 D-Dimer 0.30 ug/mLFEU (0-0.59) 01/19/24 02:55 Specimen Type Arterial 01/19/24 10:15 Sample Site Not specified 01/19/24 10:15 ABG pH 7.31 (7.35-7.45) L 01/19/24 10:15 ABG pCO2 45.5 mmHg (35-45) H 01/19/24 10:15 ABG pO2 80.7 mmHg (80.0-100.0) 01/19/24 10:15 ABG PO2/FiO2 Ratio 80 01/19/24 10:15 ABG HCO3 22.9 mmol/L (22-26) 01/19/24 10:15 ABG O2 Saturation 95.0 01/19/24 10:15 ABG Base Excess -3.5 mmol/L (-2.0-2.0) L 01/19/24 10:15 Ralf Test N/a 01/19/24 10:15 A-a O2 Gradient 75.5 mmHg (5-10) H 01/19/24 10:15 Hematocrit 46.4 % (42-52) 01/19/24 10:15 Hgb O2 Saturation 94.0 % (95-100) L 01/19/24 10:15 Carboxyhemoglobin 0.9 %THgb (0.4-20.1) 01/19/24 10:15 Methemoglobin 0.1 % (0.4-1.5) L 01/19/24 10:15 Total Hemoglobin 15.1 g/dL (14-18) 01/19/24 10:15 Sodium 142.0 mmol/L (131-143) 01/19/24 10:15 Potassium 4.0 mmol/L (3.5-5.0) 01/19/24 10:15 Glucose 158.0 mg/dL (70-115) H 01/19/24 10:15 Ionized Calcium 1.1 mmol/L (1.1-1.4) 01/19/24 10:15 O2 Delivery Device Vent 01/19/24 10:15 FiO2 100.0 % 01/19/24 10:15 Tidal Volume 0.45 01/19/24 10:15 PEEP 8.0 cmH20 01/19/24 10:15 Security And Compliance Analyst ID Gd 01/19/24 10:15 Sodium 139 mmol/L (136-145) 01/19/24 09:33 Potassium 4.1 mmol/L (3.5-5.1) 01/19/24 09:33 Chloride 107 mmol/L (98-107) 01/19/24 09:33 Carbon Dioxide 20 mmol/L (22-29) L 01/19/24 09:33 Anion Gap 16.1 (5-19) 01/19/24 09:33 BUN 18 mg/dL (6-20) 01/19/24 09:33 Creatinine 1.4 mg/dL (0.7-1.2) H 01/19/24 09:33 GFR Calculation 54.8 mL/min (90-130) L 01/19/24 09:33 Glucose 149 mg/dL (65-115) H 01/19/24 09:33 Calculated Osmolality 293 mOsm/kg (285-295) 01/19/24 09:33 Calcium 7.2 mg/dL (8.5-10.5) L 01/19/24 09:33 Magnesium 1.7 mg/dL (1.7-2.3) 01/19/24 09:33 Total Bilirubin 0.6 mg/dL (0.15-1.2) 01/19/24 09:33 AST 481 U/L (0-40) H 01/19/24 09:33 ALT 221 U/L (0-41) H 01/19/24 09:33 Alkaline Phosphatase 90 U/L (40-130) 01/19/24 09:33 Creatine Kinase 105 U/L (39-308) 01/19/24 02:55 Troponin T Baseline 8 ng/L (0-15) 01/19/24 02:55 Troponin T Hi Sens 6Hr > 00671 ng/L (0-15) H 01/19/24 09:33 Troponin T Hi Sens 6Hr Delta 9992.05723 ng/L (0-12) H* 01/19/24 09:33 NT-Pro-B Natriuret Pep 50 pg/mL (0-125) 01/19/24 02:55 Total Protein 4.9 g/dL (6.6-8.7) L D 01/19/24 09:33 Albumin 3.1 g/dL (3.5-5.2) L 01/19/24 09:33 Globulin 1.8 g/dL (1.3-4.6) 01/19/24 09:33 Lipase 43 U/L (13-60) 01/19/24 02:55 TSH 0.81 uIU/mL (0.27-4.20) 01/19/24 09:33 Ethyl Alcohol < 10 mg/dL (0-10) 01/19/24 02:55 Radiology Impressions Chest X-Ray 01/19/24 03:22 IMPRESSION: 1. Successful placement of endotracheal tube and nasogastric tubes. 2. Possible minimal central vascular congestion. Recent Clincial Data Last Vital Signs Temp 97.3 F L 01/19/24 08:00 Pulse 120 H 01/19/24 08:00 Resp 16 01/19/24 08:20 BP 114/86 01/19/24 08:00 Pulse Ox 100 01/19/24 08:20 O2 Del Method Mechanical Ventilation 01/19/24 07:30 FiO2 100 01/19/24 08:20 Vital Signs Temp Pulse Resp BP Pulse Ox O2 Del Method FiO2 01/19/24 08:20 16 100 100 01/19/24 08:00 100 01/19/24 08:00 97.3 F L 120 H 16 114/86 100 01/19/24 07:45 109 H 116/86 100 01/19/24 07:30 97.0 F L 120 H 16 125/98 100 Mechanical Ventilation 100 01/19/24 07:15 127 H 131/87 100 Mechanical Ventilation 01/19/24 07:00 123 H 124/97 100 Mechanical Ventilation 01/19/24 06:45 120 H 110/94 100 Mechanical Ventilation 01/19/24 06:31 24 H 96 100 01/19/24 06:30 122 H 103/85 99 Mechanical Ventilation 01/19/24 06:15 116 H 125/77 100 Mechanical Ventilation 01/19/24 06:00 74 99 Mechanical Ventilation 01/19/24 06:00 100 01/19/24 04:12 85 100 01/19/24 04:10 61 23 H 94 01/19/24 04:05 49 L 40/27 98 01/19/24 04:05 63 99 01/19/24 04:03 70 29 H 100 01/19/24 04:00 70 27 H 100 01/19/24 03:55 54 L 71/46 100 01/19/24 03:52 56 L 20 H 93/63 100 01/19/24 03:50 58 L 20 H 100 01/19/24 03:46 58 L 112/77 100 01/19/24 03:45 60 20 H 100 01/19/24 03:45 60 20 H 100 01/19/24 03:43 62 24 H 126/102 100 01/19/24 03:40 61 172/107 99 01/19/24 03:40 61 99 01/19/24 03:38 68 20 H 99 01/19/24 03:35 125 H 24 H 100 01/19/24 03:30 76 22 H 97 01/19/24 03:27 70 22 H 115/90 92 01/19/24 03:25 73 19 H 93 01/19/24 03:20 84 31 H 96 01/19/24 03:18 70 16 115/90 95 Room Air Intake & Output/Weight 01/17/24 01/18/24 01/19/24 01/20/24 06:59 06:59 06:59 06:59 Intake Total 24.917 / 24.917 1288.510 / 1288.510 Balance 24.917 / 24.917 1288.510 / 1288.510 Weight 170 lb 161 lb 11.2 oz Vitals Last Vital Signs Temp 97.3 F L 01/19/24 08:00 Pulse 120 H 01/19/24 08:00 Resp 16 01/19/24 08:20 BP 114/86 01/19/24 08:00 Pulse Ox 100 01/19/24 08:20 O2 Del Method Mechanical Ventilation 01/19/24 07:30 FiO2 100 01/19/24 08:20 TS Medications Medications Acetaminophen (Acetaminophen 325 Mg Tablet) 650 mg PO Q6H PRN PRN Reason: MILD PAIN Al Hydrox/Mg Hydrox/Simethicone (Egxk-Utj-Kjfejeryg-Leonel 30 Ml Udc) 30 ml PO Q15M PRN PRN Reason: INDIGESTION Al Hydrox/Mg Hydrox/Simethicone (Hrzr-Byq-Jnmohumzi-Leonel 30 Ml Udc) 30 ml PO Q15M PRN PRN Reason: INDIGESTION Alprazolam (Alprazolam 0.5 Mg Tablet) 0.25 mg PO TID PRN PRN Reason: ANXIETY Atorvastatin Calcium (Atorvastatin 40 Mg Tablet) 80 mg PO BEDTIME MICHAEL Atropine Sulfate (Atropine 1 Mg/Ml Sdv 1 Ml) 0.5 mg IVP PRN PRN PRN Reason: Symptomatic bradycardia Clopidogrel Bisulfate (Clopidogrel 75 Mg Tablet) 75 mg PO DAILY MICHAEL Last Admin: 01/19/24 08:08 Dose: Not Given Fentanyl (Fentanyl 50 Mcg/Ml Inj 2ml) 50 mcg IVP PRN PRN PRN Reason: PAIN Heparin Sodium (Porcine) (Heparin 5,000 Unit/Ml Inj 1 Ml) 5,000 unit SUBCUT Q8H MICHAEL Last Admin: 01/19/24 07:25 Dose: 5,000 unit Propofol (Diprivan) 1,000 mg in 100 mls @ 0 mls/hr IV .Q0M MICHAEL; Protocol Last Titration: 01/19/24 05:57 Dose: Infused Epinephrine HCl 2.5 mg/ Sodium (Chloride) 252.5 mls @ 0 mls/hr IV .Q0M MICHAEL; Protocol Last Titration: 01/19/24 07:08 Dose: Infused Norepinephrine Bitartrate (Levophed) 4 mg in 250 mls @ 0 mls/hr IV .Q0M MICHAEL; Protocol Last Titration: 01/19/24 08:45 Dose: 20 mcg/min, 75 mls/hr Fentanyl (Sublimaze) 1,000 mcg in 100 mls @ 0 mls/hr IV .Q0M MICHAEL; Protocol Last Titration: 01/19/24 08:00 Dose: 150 mcg/hr, 15 mls/hr Sodium Chloride (Sodium Chloride 0.9%) 1,000 mls @ 200 mls/hr IV .Q5H MICHAEL Last Admin: 01/19/24 07:14 Dose: 200 mls/hr Midazolam HCl (Versed) 100 mg in 100 mls @ 0 mls/hr IV .Q0M MICHAEL; Protocol Last Titration: 01/19/24 08:00 Dose: 3 mg/hr, 3 mls/hr Vasopressin (Vasostrict) 40 unit in 100 mls @ 0 mls/hr IV .Q0M MICHAEL; Protocol Last Admin: 01/19/24 09:00 Dose: 0.01 unit/min, 1.5 mls/hr Amiodarone HCl/Dextrose (Nexterone) 360 mg in 200 mls @ 0 mls/hr IV .Q0M MICHAEL; Protocol Magnesium Hydroxide (Magnesium Hydroxide 30 Ml Udc) 30 ml PO DAILY PRN PRN Reason: CONSTIPATION Magnesium Hydroxide (Magnesium Hydroxide 30 Ml Udc) 30 ml PO DAILY PRN PRN Reason: CONSTIPATION Naloxone HCl (Naloxone 0.4 Mg/Ml Sdv) 0.1 mg IVP Q2M PRN PRN Reason: RESPIRATORY RATE < 8/MIN Nitroglycerin (Nitroglycerin 0.4 Mg Sublingual Tablet) 0.4 mg SUBLINGUAL Q5M PRN PRN Reason: CHEST PAIN Pantoprazole Sodium (Pantoprazole 40 Mg Sdv) 40 mg IVP DAILY [facility] Last Admin: 01/19/24 08:38 Dose: 40 mg Temazepam (Temazepam 15 Mg Capsule) 15 mg PO BEDTIME PRN PRN Reason: INSOMNIA Discontinued Medications Aspirin (Aspirin 81 Mg Chew Tablet) 324 mg PO NOW ONE Stop: 01/19/24 03:43 Last Admin: 01/19/24 06:42 Dose: 324 mg Clopidogrel Bisulfate (Clopidogrel 300 Mg Tablet) 600 mg PO ONCE ONE Stop: 01/19/24 03:42 Last Admin: 01/19/24 03:52 Dose: 600 mg Epinephrine HCl (Epinephrine 1 Mg/Ml Inj) Confirm Administered Dose 3 mg .ROUTE .STK-MED ONE Stop: 01/19/24 03:44 Fentanyl (Fentanyl 50 Mcg/Ml Inj 2ml) Confirm Administered Dose 100 mcg .ROUTE .STK-MED ONE Stop: 01/19/24 03:49 Heparin Sodium (Porcine) (Heparin 5,000 Unit/Ml Inj 1 Ml) 4,000 unit IVP ONCE ONE Stop: 01/19/24 03:41 Last Admin: 01/19/24 06:40 Dose: 4,000 unit Heparin Sodium (Porcine) (Heparin 5,000 Unit/Ml Inj 1 Ml) Confirm Administered Dose 5,000 unit .ROUTE .STK-MED ONE Stop: 01/19/24 04:38 Heparin Sodium (Porcine) (Heparin 5,000 Unit/Ml Inj 1 Ml) Confirm Administered Dose 5,000 unit .ROUTE .STK-MED ONE Stop: 01/19/24 05:14 Heparin Sodium (Porcine) (Heparin 5,000 Unit/Ml Inj 1 Ml) Confirm Administered Dose 5,000 unit .ROUTE .STK-MED ONE Stop: 01/19/24 10:05 Sodium Chloride (Sodium Chloride 0.9%) Confirm Administered Dose 250 mls @ as directed .[facility]TE [facility] Stop: 01/19/24 03:45 Lidocaine HCl (Xylocaine) Confirm Administered Dose 20 mls @ as directed .ROUTE .[facility] ONE Stop: 01/19/24 03:49 Sodium Chloride (Sodium Chloride 0.9%) 1,000 mls @ 999 mls/hr IV .Q1H1M ONE Stop: 01/19/24 04:53 Last Infusion: 01/19/24 07:10 Dose: Infused Propofol (Diprivan) Confirm Administered Dose 1,000 mg in 100 mls @ as directed .[facility] ONE Stop: 01/19/24 03:52 Norepinephrine Bitartrate (Levophed) Confirm Administered Dose 4 mg in 250 mls @ as directed .[facility]OUTE [facility] ONE Stop: 01/19/24 03:55 Vasopressin (Vasostrict) Confirm Administered Dose 40 unit in 100 mls @ as directed .ROUTE [facility] ONE Stop: 01/19/24 04:13 Tirofiban/Sodium Chloride (Aggrastat) Confirm Administered Dose 5 mg in 100 mls @ as directed .ROUTE [facility] ONE Stop: 01/19/24 04:41 Vasopressin (Vasostrict) Confirm Administered Dose 40 unit in 100 mls @ as directed .ROUTE .[facility] ONE Stop: 01/19/24 04:56 Last Admin: 01/19/24 07:12 Dose: Not Given Tirofiban/Sodium Chloride (Aggrastat) Confirm Administered Dose 5 mg in 100 mls @ as directed .ROUTE .[facility] ONE Stop: 01/19/24 08:28 Amiodarone HCl/Dextrose (Nexterone) 150 mg in 100 mls @ 400 mls/hr IV ONCE ONE Stop: 01/19/24 09:48 Lidocaine HCl (Xylocaine) Confirm Administered Dose 20 mls @ as [facility] Stop: 01/19/24 10:34 Magnesium Sulfate (Magnesium Sulfate Premix) 2 gm in 50 mls @ 50 mls/hr IV ONCE ONE Stop: 01/19/24 11:51 Ketamine HCl (Ketamine 100 Mg/Ml Inj 5 Ml) 400 mg IVP ONCE ONE Stop: 01/19/24 03:45 Last Admin: 01/19/24 06:42 Dose: 400 mg Ketamine HCl (Ketamine 100 Mg/Ml Inj 5 Ml) Confirm Administered Dose 500 mg .ROUTE .STK-MED ONE Stop: 01/19/24 03:50 Midazolam HCl (Midazolam 1 Mg/Ml Inj 2 Ml) Confirm Administered Dose 2 mg .ROUTE .STK-MED ONE Stop: 01/19/24 03:49 Midazolam HCl (Midazolam 1 Mg/Ml Inj 2 Ml) Confirm Administered Dose 2 mg .ROUTE .STK-MED ONE Stop: 01/19/24 05:53 Allergies No Known Allergies Allergy (Verified 10/01/23 08:30) Home Medications amlodipine 5 mg tablet 5 mg PO DAILY 01/19/24 [History Confirmed 01/19/24] benazepril 40 mg tablet 40 mg PO DAILY 01/19/24 [History Confirmed 01/19/24] lisinopril 40 mg tablet 40 mg PO DAILY 01/19/24 [History Confirmed 01/19/24] Discharge Plan Discharge Patient Disposition: Xfer Short-Term Hosp Condition: Critical Prescriptions: No Action aspirin [Adult Aspirin Regimen] 81 mg tablet,delayed release (DR/EC) 81 mg PO DAILY clopidogrel 75 mg tablet 75 mg PO DAILY furosemide 40 mg tablet 20 mg PO DAILY Qty: 45 1RF metoprolol tartrate 75 mg tablet 75 mg PO DAILY Qty: 60 2RF spironolactone 25 mg tablet 25 mg PO DAILY Qty: 90 3RF Discharge Orders: Discharge Order (Routine); Ordered 02/09/24 Ordered By: Marcelino Hernández Transfer Attestations Time Spent in Transfer Care: critical care time (More than 90 minutes) Critical Care Time (min): 90 Quality Metrics Clinical Quality Measures [ Acute Myocardial Infaction { Clinical Trial Participant: No; Contraindication to aspirin: None; Aspirin prescribed; Contraindication to statin: None; Statin prescribed and Other;}] Coding Level of Care Code Acute Code for [facility] Diagnoses Cardiac arrest due to underlying cardiac condition I46.[address] elevation myocardial infarction (STEMI) I21.11 Involved coronary artery: right coronary artery Nicotine dependence, cigarettes, with other nicotine-induced disorders F17.218 Dyslipidemia E78.5
[2024-01-19] MEDS: magnesium sulfate premix 2 GM/50 ML PIGGYBACK IV (12:04)
[2024-01-19] MEDS: norepinephrine 4 MG/250 ML BAG 75 MG IV (12:06)
[2024-01-19 12:43] LABS: Basophils # 0.1 10^3/uL (0.0-0.1); Basophils % 0.3 %; Eosinophils % 0.1 %; Hematocrit 48.2 % (37-53); Lymphocytes % 5.8 %; Mean Corpuscular HGB Conc 31.3 g/dL (30-55); Mean Corpuscular Hemoglobin 30.1 pg (27-33); Monocytes # 2.8 10^3/uL (0.2-0.9); Monocytes % 8.1 %; Neutrophils # 28.78 10^3/uL (1.8-7.7); Neutrophils % 83.7 %; Nucleated Red Blood Cells % 0 %; Platelet Count 249 10^3/cmm (157-399); Red Blood Count 5.02 10^6/uL (3.85-5.65); Red Cell Distribution Width 13.8 % (12.1-15.1)
[2024-01-19 12:50] LABS: White Blood Count 34.39 10^3/uL (3.29-11.43)
--- NOTE | 2024-01-19 12:58 | PC.NURSE ---
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 Returned to ICU around 1130
--- NOTE | 2024-01-19 15:28 | PC.NURSE ---
Patient transferred to [facility] via [facility] at 1410 approximately
== END 2024-01-19 14:10 | disposition short-term general hospital (02) | DRG 323 ==
LOC: ER 03:32 → CCL 03:38 → ICU 06:14
PROVIDERS: Admitting Provider Internal Medicine Cardiovascular Disease; Emergency Provider Emergency Medicine; PCP Family Medicine; Visit Provider Internal Medicine Cardiovascular Disease
PROC: 027034Z Dilation of Coronary Artery, One Artery with Drug-eluting Intraluminal Device, Percutaneous Approach (ICD-10-PCS; principal; 2024-01-19 04:00)
PROC: 027034Z Dilation of Coronary Artery, One Artery with Drug-eluting Intraluminal Device, Percutaneous Approach (ICD-10-PCS; 2024-01-19 04:00)
DX: I21.11 ST elevation (STEMI) myocardial infarction involving right coronary artery (principal); I46.2 Cardiac arrest due to underlying cardiac condition; J96.01 Acute respiratory failure with hypoxia; F17.210 Nicotine dependence, cigarettes, uncomplicated; I95.9 Hypotension, unspecified; E78.5 Hyperlipidemia, unspecified; I50.810 Right heart failure, unspecified; I48.91 Unspecified atrial fibrillation; I73.9 Peripheral vascular disease, unspecified; I11.0 Hypertensive heart disease with heart failure
CPT/HCPCS: 33210; 36415; 71045; 75625; 80048; 80051; 80053; 80307; 82330; 82550; 82805; 83690; 83735; 83880; 84443; 84484; 85025; 85347; 85378; 85610; 85730; 87070; 87205; 92973; 93005; 93306; 93451; 93458; 93926; 94002; 94799; 96365; 96366; 96372; 96374; 96375; 99152; 99153; 99285; C1725; C1751; C1757; C1769; C1779; C1874; C1887; C1894; C9600; J0153; J0171; J0282; J0283; J0330; J1644; J2250; J2470; J2598; J2704; J3010; J3475; J3490; J7030; J7050; Q9967

== ENCOUNTER → 2024-01-30 10:31 | Outpatient (BNVA) | payer BC, SELFPAY | PROVIDERS: PCP Family Medicine; Visit Provider Internal Medicine Cardiovascular Disease | DX: E78.5 Hyperlipidemia, unspecified (principal); I10 Essential (primary) hypertension; I46.2 Cardiac arrest due to underlying cardiac condition; J96.91 Respiratory failure, unspecified with hypoxia | CPT/HCPCS: 36415; 80048; 85025 ==

== ENCOUNTER 2024-02-02 10:07 | Outpatient (CLI) | payer BC, SELFPAY ==
[2024-02-02 10:27] LABS: Basophils # 0.1 10^3/uL (0.0-0.1); Eosinophils # 0.3 10^3/uL (0.0-0.8); Hematocrit 39.6 % (37-53); Lymphocytes # 1.5 10^3/uL (0.8-4.8); Lymphocytes % 14.6 %; Mean Corpuscular HGB Conc 32.6 g/dL (30-55); Mean Corpuscular Hemoglobin 29.8 pg (27-33); Mean Corpuscular Volume 91.5 fl (82-101); Monocytes # 0.7 10^3/uL (0.2-0.9); Monocytes % 6.4 %; Neutrophils # 7.62 10^3/uL (1.8-7.7); Neutrophils % 72.6 %; Nucleated Red Blood Cells % 0 %; Platelet Count 506 10^3/cmm (157-399); Red Blood Count 4.33 10^6/uL (3.85-5.65); Red Cell Distribution Width 13.2 % (12.1-15.1); White Blood Count 10.48 10^3/uL (3.29-11.43)
[2024-02-02 10:46] LABS: Anion Gap 13.1 (5-19); Blood Urea Nitrogen 24 mg/dL (6-20); Calcium 8.8 mg/dL (8.5-10.5); Carbon Dioxide 25 mmol/L (22-29); Chloride 96 mmol/L (98-107); Glomerular Filtration Rate 80.8 mL/min (90-130); Glucose 91 mg/dL (65-115); Osmolality Calculated 272 mOsm/kg (285-295); Potassium 5.1 mmol/L (3.5-5.1); Sodium 129 mmol/L (136-145)
== END 2024-02-02 10:08 | disposition home or self-care (01) ==
LOC: LAB 10:08
PROVIDERS: PCP Family Medicine; Visit Provider Internal Medicine Cardiovascular Disease
DX: J96.91 Respiratory failure, unspecified with hypoxia (principal); I21.3 ST elevation (STEMI) myocardial infarction of unspecified site; E78.5 Hyperlipidemia, unspecified; I46.2 Cardiac arrest due to underlying cardiac condition; I10 Essential (primary) hypertension
CPT/HCPCS: 36415; 80048; 85025

== ENCOUNTER 2024-02-06 13:38 | Outpatient (CLI) | payer BC, SELFPAY ==
[2024-02-06 14:03] LABS: Basophils # 0.1 10^3/uL (0.0-0.1); Basophils % 0.7 %; Eosinophils # 0.3 10^3/uL (0.0-0.8); Eosinophils % 3.4 %; Hematocrit 39.4 % (37-53); Lymphocytes # 1.4 10^3/uL (0.8-4.8); Lymphocytes % 14.3 %; Mean Corpuscular HGB Conc 32.7 g/dL (30-55); Mean Corpuscular Hemoglobin 29.6 pg (27-33); Mean Corpuscular Volume 90.4 fl (82-101); Mean Platelet Volume 10.2 fL (7.4-10.4); Monocytes # 0.5 10^3/uL (0.2-0.9); Neutrophils # 7.31 10^3/uL (1.8-7.7); Neutrophils % 74.8 %; Nucleated Red Blood Cells % 0 %; Platelet Count 408 10^3/cmm (157-399); Red Blood Count 4.36 10^6/uL (3.85-5.65); Red Cell Distribution Width 13.4 % (12.1-15.1); White Blood Count 9.78 10^3/uL (3.29-11.43)
[2024-02-06 14:21] LABS: Anion Gap 16.5 (5-19); Blood Urea Nitrogen 16 mg/dL (6-20); Calcium 8.8 mg/dL (8.5-10.5); Carbon Dioxide 27 mmol/L (22-29); Chloride 104 mmol/L (98-107); Glomerular Filtration Rate 91.3 mL/min (90-130); Glucose 118 mg/dL (65-115); Osmolality Calculated 298 mOsm/kg (285-295); Potassium 4.5 mmol/L (3.5-5.1); Sodium 143 mmol/L (136-145)
== END 2024-02-06 13:39 | disposition home or self-care (01) ==
LOC: LAB 13:39
PROVIDERS: PCP Family Medicine; Visit Provider Internal Medicine Cardiovascular Disease
DX: J96.91 Respiratory failure, unspecified with hypoxia (principal); I46.2 Cardiac arrest due to underlying cardiac condition; I10 Essential (primary) hypertension
CPT/HCPCS: 36415; 80048; 85025

== ENCOUNTER 2024-02-23 10:33 | Outpatient (RCR) | payer BC, SELFPAY | END 2024-03-13 23:59 | disposition home or self-care (01) | LOC: CR 10:33 | PROVIDERS: PCP Family Medicine; Referring Provider Internal Medicine Cardiovascular Disease; Visit Provider Internal Medicine Cardiovascular Disease | DX: Z95.5 Presence of coronary angioplasty implant and graft (principal) | CPT/HCPCS: 93798 ==

== ENCOUNTER 2024-03-03 10:32 | Outpatient (CLI) | payer BC, SELFPAY ==
[2024-03-03 11:30] LABS: Anion Gap 17.2 (5-19); Blood Urea Nitrogen 24 mg/dL (6-20); Calcium 9.7 mg/dL (8.5-10.5); Carbon Dioxide 26 mmol/L (22-29); Chloride 101 mmol/L (98-107); Glomerular Filtration Rate 91.3 mL/min (90-130); Glucose 87 mg/dL (65-115); Osmolality Calculated 291 mOsm/kg (285-295); Potassium 5.2 mmol/L (3.5-5.1); Sodium 139 mmol/L (136-145)
== END 2024-03-03 10:33 | disposition home or self-care (01) ==
LOC: LAB 10:33
PROVIDERS: PCP Family Medicine; Visit Provider Internal Medicine Cardiovascular Disease
DX: I95.9 Hypotension, unspecified (principal); I10 Essential (primary) hypertension
CPT/HCPCS: 36415; 80048

== ENCOUNTER 2024-03-15 10:24 | Outpatient (CLI) | payer BC, SELFPAY ==
[2024-03-15 11:57] LABS: Blood Urea Nitrogen 23 mg/dL (6-20); Calcium 9.7 mg/dL (8.5-10.5); Carbon Dioxide 31 mmol/L (22-29); Chloride 98 mmol/L (98-107); Glomerular Filtration Rate 72.4 mL/min (90-130); Glucose 91 mg/dL (65-115); Osmolality Calculated 289 mOsm/kg (285-295); Sodium 138 mmol/L (136-145)
[2024-03-15 12:00] LABS: Anion Gap 13.5 (5-19); Potassium 4.5 mmol/L (3.5-5.1)
== END 2024-03-15 10:25 | disposition home or self-care (01) ==
LOC: LAB 10:26
PROVIDERS: PCP Family Medicine; Visit Provider Internal Medicine Cardiovascular Disease
DX: I10 Essential (primary) hypertension (principal); I95.9 Hypotension, unspecified; J96.91 Respiratory failure, unspecified with hypoxia
CPT/HCPCS: 36415; 80048

== ENCOUNTER 2024-03-15 11:10 | Outpatient (RCR) | payer BC, SELFPAY | END 2024-04-13 23:59 | disposition home or self-care (01) | LOC: CR 11:10 | PROVIDERS: PCP Family Medicine; Referring Provider Internal Medicine Cardiovascular Disease; Visit Provider Internal Medicine Cardiovascular Disease | DX: Z95.5 Presence of coronary angioplasty implant and graft (principal) | CPT/HCPCS: 93798 ==

== ENCOUNTER 2024-03-26 12:18 | Outpatient (CLI) | payer BC, SELFPAY ==
[2024-03-26 13:07] LABS: Anion Gap 16.1 (5-19); Blood Urea Nitrogen 23 mg/dL (6-20); Calcium 9.3 mg/dL (8.5-10.5); Carbon Dioxide 26 mmol/L (22-29); Chloride 100 mmol/L (98-107); Glomerular Filtration Rate 72.4 mL/min (90-130); Glucose 103 mg/dL (65-115); Osmolality Calculated 290 mOsm/kg (285-295); Potassium 4.1 mmol/L (3.5-5.1); Sodium 138 mmol/L (136-145)
== END 2024-03-26 12:19 | disposition home or self-care (01) ==
LOC: LAB 12:22
PROVIDERS: PCP Family Medicine; Visit Provider Internal Medicine Cardiovascular Disease
DX: E87.6 Hypokalemia (principal)
CPT/HCPCS: 36415; 80048

== ENCOUNTER 2024-07-08 15:41 | Emergency (ER) | payer BC, SELFPAY ==
[2024-07-08] VITALS (9 sets, daily range): BP systolic 95–123; BP diastolic 66–77; PULSE 54–68; RESP 10–18; TEMP 36.7; O2SAT 96–98; BMI 32.1
--- NOTE | 2024-07-08 15:43 | XRR_ITS ---
PROCEDURE INFORMATION: Exam: XR Chest Exam date and time: 07/08/2024 4:25 PM Age: 43 years old Clinical indication: Pain; Angina pectoris; Additional info: Cp TECHNIQUE: Imaging protocol: Radiologic exam of the chest. Views: 1 view. COMPARISON: CR XR chest 1V portable [id number] 01/19/2024 3:22 AM FINDINGS: Lungs: No focal consolidation. Scattered calcified granulomas noted. Pleural spaces: No evidence of pneumothorax. No evidence of pleural effusion. Heart/Mediastinum: Cardiomediastinal silhouette is within normal limits. Bones/joints: No evidence of acute osseous abnormality. XR/XR chest 1V portable [id number] IMPRESSION: 1. No acute cardiopulmonary abnormality.
--- NOTE | 2024-07-08 15:43 | ECG_ITS ---
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 Measurements Intervals [place] Rate: 64 P: 41 UT: 173 QRS: -38 QRSD: 96 T: -8 QT: 396 QTc: 409 Interpretive Statements SINUS RHYTHM LEFT AXIS DEVIATION [QRS AXIS < -30] PATTERN CONSISTENT WITH PULMONARY DISEASE MODERATE VOLTAGE CRITERIA FOR LVH, CONSIDER NORMAL VARIANT [MEETS CRITERIA IN ONE OF: R(aVL), S(V1), R(V5), R(V5/V6)+S(V1)] Compared to ECG 01/19/2024 09:48:59 Left-axis deviation now present Atrial fibrillation no longer present.Ventricular premature complex(es) no longer present.Aberrant conduction of supraventricular beat(s) no longer present Myocardial infarct finding no longer present.T-wave abnormality no longer present.Possible ischemia no longer present Myocardial infarct finding no longer present Electronically Signed On 07-08-2024 22:18:44 CDT by Jacki Plunkett M.D. [email or web address]
[2024-07-08 16:19] LABS: Basophils % 0.5 %; Eosinophils # 0.3 10^3/uL (0.0-0.8); Eosinophils % 4.5 %; Hematocrit 43.4 % (37-53); Lymphocytes % 16.7 %; Mean Corpuscular HGB Conc 33.6 g/dL (30-55); Mean Corpuscular Hemoglobin 28.6 pg (27-33); Mean Corpuscular Volume 85.1 fl (82-101); Monocytes # 0.5 10^3/uL (0.2-0.9); Monocytes % 8.2 %; Neutrophils # 4.31 10^3/uL (1.8-7.7); Neutrophils % 69.3 %; Nucleated Red Blood Cells % 0 %; Platelet Count 218 10^3/cmm (157-399); Red Cell Distribution Width 13.1 % (12.1-15.1); White Blood Count 6.22 10^3/uL (3.29-11.43)
--- NOTE | 2024-07-08 16:20 | W.ED.SOB ---
HPI - SOB/Dyspnea General: Chief Complaint: Shortness of Breath/Dyspnea Stated Complaint: CP/SOB Time Seen by Provider: 07/08/24 16:08 Source: patient Mode of arrival: ambulatory Limitations: no limitations History of Present Illness: HPI Narrative: 43-year-old male with history of coronary disease states over the last week he has been having shortness of breath been much worse with the exertion he had some slight chest pressure as well. He states his pain is currently 2 out of 10 he denies any fever denies any cough. Associated symptoms: Reports chest pain; Deny abdominal pain, fever(s), nausea or vomiting Related Data Home Medications ?Medication ?Instructions ?Recorded ?Confirmed aspirin 81 mg tablet,delayed 81 mg PO DAILY 01/30/24 03/16/24 release (Adult Aspirin Regimen) clopidogrel 75 mg tablet 75 mg PO DAILY 01/30/24 03/16/24 Previous Rx's ?Medication ?Instructions ?Recorded metoprolol tartrate 75 mg tablet 75 mg PO DAILY #60 tabs 02/19/24 spironolactone 25 mg tablet 12.5 mg (1/2 x 25 mg) PO DAILY #90 03/09/24 tabs valsartan 80 mg tablet 80 mg PO DAILY #90 tabs 03/16/24 furosemide 40 mg tablet 40 mg PO BID #180 tabs 04/13/24 metolazone 2.5 mg tablet 2.5 mg PO DAILY #3 tabs 04/13/24 potassium chloride 20 mEq 20 meq PO DAILY #90 tabs 04/13/24 tablet,extended release Allergies Allergy/AdvReac Type Severity Reaction Status Date / Time No Known Allergies Allergy Verified 03/16/24 15:41 Review of Systems Const: Denies: fever(s), chills, body aches or change in appetite ENMT: Denies: throat pain or dental pain Card: Reports: chest pain Resp: Reports: dyspnea GI: Denies: abdominal pain, nausea, vomiting or diarrhea : Denies: dysuria Musc: Denies: neck pain or back pain Skin/Breast: Denies: rash Neuro: Denies: headache(s) [facility] PFSH: Medical History (Updated 07/08/24 @ 18:52 by Erick Velásquez MD) CAD (coronary artery disease) Hypertension Allergic rhinitis due to allergen Otitis media of right ear Social History (Updated 03/16/24 @ 15:44 by Randa Argueta LPN) Smoking and tobacco/nicotine status: current every day tobacco/nicotine user Quit status (tobacco/nicotine): has quit using Year quit tobacco: 01/18/24 Alcohol intake: current Alcohol intake frequency: holidays/special occasions only Substance/Drug Use: never Physical Exam Const: COMMON NORMALS: no acute distress, patient oriented x3 and healthy appearing HENMT: COMMON NORMALS: normocephalic and atraumatic HEAD & SCALP: normocephalic and atraumatic Eye: COMMON NORMALS: Equal, round and reactive pupils present and EOMs intact bilaterally PUPIL: Yes Equal, round and reactive pupils present Neck/C-Spine: COMMON NORMALS: full ROM and supple Chest: COMMONS NORMALS: normal inspection of the chest and normal palpation of entire chest wall Resp: COMMON NORMALS: normal respiratory effort, No retractions, No use of accessory muscles and clear to auscultation bilaterally AUSCULTATION: clear to auscultation bilaterally Cardio: COMMON NORMALS: regular rate, regular rhythm and No murmurs present (Cardio) RATE: regular rate RHYTHM: regular rhythm GI: COMMON NORMALS: Normal to inspection, nondistended, normoactive bowel sounds present, Soft to palpation, non-tender and no masses PALPATION: Yes Soft to palpation Extremity: COMMON NORMALS: normal to inspection and full ROM Neuro: COMMON NORMALS: patient oriented x3, moves all extremities and no focal motor deficits Psych: COMMON NORMALS: mental status grossly normal, Normal thought process present and cooperative THOUGHT PROCESS: Normal thought process present Skin: COMMON NORMALS: no rashes or lesions noted and no wounds GENERAL SKIN EXAM: no rashes or lesions noted Course Vital Signs: Vital signs: Vital Signs Temperature 98.0 F 07/08/24 15:44 Pulse Rate 55 L 07/08/24 18:30 Respiratory Rate 10 L 07/08/24 18:30 Blood Pressure 123/71 07/08/24 18:30 Pulse Oximetry 96 07/08/24 18:30 Oxygen Delivery Me thod Room Air 07/08/24 15:44 MDM - SOB/Dyspnea Medical Decision Making Patient presents here with dyspnea since intermittent chest pain as well as been well-appearing here EKG showed no acute abnormalities both troponins are negative D-dimer is negative no signs of ACS no signs of pulmonary embolism or dissection he stable for discharge 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 Lab Data I reviewed the patient's lab results. 07/08/24 16:10 07/08/24 16:10 Labs/Radiology: Radiology Impressions Chest X-Ray 07/08/24 15:43 IMPRESSION: 1. No acute cardiopulmonary abnormality. Laboratory Results WBC 6.22 10^3/uL (3.29-11.43) 07/08/24 16:10 RBC 5.10 10^6/uL (3.85-5.65) 07/08/24 16:10 Hgb 14.60 g/dL (11.27-16.99) 07/08/24 16:10 Hct 43.4 % (37-53) 07/08/24 16:10 MCV 85.1 fl (82-101) 07/08/24 16:10 MCH 28.6 pg (27-33) 07/08/24 16:10 MCHC 33.6 g/dL (30-55) 07/08/24 16:10 RDW 13.1 % (12.1-15.1) 07/08/24 16:10 Plt Count 218 10^3/cmm (157-399) 07/08/24 16:10 MPV 11.0 fL (7.4-10.4) H 07/08/24 16:10 Neut % (Auto) 69.3 % 07/08/24 16:10 Lymph % (Auto) 16.7 % 07/08/24 16:10 Beckham % (Auto) 8.2 % 07/08/24 16:10 Eos % (Auto) 4.5 % 07/08/24 16:10 Baso % (Auto) 0.5 % 07/08/24 16:10 Neut # (Auto) 4.31 10^3/uL (1.8-7.7) 07/08/24 16:10 Lymph # (Auto) 1.0 10^3/uL (0.8-4.8) 07/08/24 16:10 Beckham # (Auto) 0.5 10^3/uL (0.2-0.9) 07/08/24 16:10 Eos # (Auto) 0.3 10^3/uL (0.0-0.8) 07/08/24 16:10 Baso # (Auto) 0.0 10^3/uL (0.0-0.1) 07/08/24 16:10 Nucleated RBC % (auto) 0 % 07/08/24 16:10 Nucleated RBCs # 0.0 /100WBC 07/08/24 16:10 D-Dimer 0.28 ug/mLFEU (0-0.59) 07/08/24 16:10 Sodium 138 mmol/L (136-145) 07/08/24 16:10 Potassium 4.6 mmol/L (3.5-5.1) 07/08/24 16:10 Chloride 100 mmol/L (98-107) 07/08/24 16:10 Carbon Dioxide 23 mmol/L (22-29) 07/08/24 16:10 Anion Gap 19.6 (5-19) H 07/08/24 16:10 BUN 40 mg/dL (6-20) H 07/08/24 16:10 Creatinine 1.5 mg/dL (0.7-1.2) H 07/08/24 16:10 GFR Calculation 50.6 mL/min (90-130) L 07/08/24 16:10 Glucose 125 mg/dL (65-115) H 07/08/24 16:10 Calculated Osmolality 297 mOsm/kg (285-295) H 07/08/24 16:10 Calcium 9.5 mg/dL (8.5-10.5) 07/08/24 16:10 Total Bilirubin 0.4 mg/dL (0.15-1.2) 07/08/24 16:10 AST 20 U/L (0-40) 07/08/24 16:10 ALT 28 U/L (0-41) 07/08/24 16:10 Alkaline Phosphatase 94 U/L (40-130) 07/08/24 16:10 Troponin T Baseline 12 ng/L (0-15) 07/08/24 16:10 Troponin T 120 Minute 12.34 ng/L (0-15) 07/08/24 18:10 Delta Troponin T 0.34 ABS# (0-10) 07/08/24 18:10 NT-Pro-B Natriuret Pep < 36 pg/mL (0-125) 07/08/24 16:10 Total Protein 7.2 g/dL (6.6-8.7) 07/08/24 16:10 Albumin 4.5 g/dL (3.5-5.2) 07/08/24 16:10 Globulin 2.7 g/dL (1.3-4.6) 07/08/24 16:10 Lipase 33 U/L (13-60) 07/08/24 16:10 All radiology interpretation(s) finalized by discharge EKG Data EKG 1: I personally reviewed and interpreted this EKG as follows: EKG Interpretation Date: 07/08/24 EKG interpretation time: 17:11 Interpretation: sinus megha hr [address] elevation qrs 110 qtc 416 Discharge Plan Discharge Patient Disposition: Home Clinical Impression: Dyspnea, Chest pain Condition: Stable Prescriptions: No Action aspirin [Adult Aspirin Regimen] 81 mg tablet,delayed release (DR/EC) 81 mg PO DAILY clopidogrel 75 mg tablet 75 mg PO DAILY metoprolol tartrate 75 mg tablet 75 mg PO DAILY Qty: 60 2RF spironolactone 25 mg tablet 12.5 mg PO DAILY Qty: 90 3RF valsartan 80 mg tablet 80 mg PO DAILY Qty: 90 3RF furosemide 40 mg tablet 40 mg PO BID Qty: 180 3RF potassium chloride 20 mEq tablet extended release 20 meq PO DAILY Qty: 90 3RF metolazone 2.5 mg tablet 2.5 mg PO DAILY Qty: 3 0RF Discharge Orders: Discharge ED (Routine); Ordered 07/08/24 Ordered By: Erick Velásquez Referrals: Christine Yang [Primary Care Provider] - Discharge Diet: Advance as tolerated Discharge Activity: Resume usual activity Patient Instructions: Chest Pain (ED), Dyspnea (ED) Print Language: Sinhala Coding Level of Care Code ED Lockstitch Hemmer for Rubia Lynne
[2024-07-08 16:39] LABS: D Dimer 0.28 ug/mLFEU (0-0.59)
[2024-07-08 16:40] LABS: Albumin Level 4.5 g/dL (3.5-5.2); Alkaline Phosphatase 94 U/L (40-130); Chloride 100 mmol/L (98-107); Potassium 4.6 mmol/L (3.5-5.1); Sodium 138 mmol/L (136-145)
[2024-07-08] MEDS: nitroglycerin 0.4 mg sublingual Tablet SUBLINGUAL (16:57)
[2024-07-08] MEDS: aspirin 81 mg Chew Tablet 324 MG PO (16:57)
[2024-07-08 17:02] LABS: Troponin(5th) Baseline 12 ng/L (0-15)
--- NOTE | 2024-07-08 17:11 | ECG_ITS ---
[facility]: [facility]08 Pat Name: Corey Messina Department: Room: Gender: Male [employer]ist: : [id number] Requested By: Erick Velásquez Order Number: [id number] Michele MD: Jacki Plunkett M.D. Measurements Intervals [place] Rate: 53 P: 18 MD: 171 QRS: -37 QRSD: 110 T: -21 QT: 432 QTc: 409 Interpretive Statements SINUS BRADYCARDIA LEFT AXIS DEVIATION [QRS AXIS < -30] PATTERN CONSISTENT WITH PULMONARY DISEASE MODERATE VOLTAGE CRITERIA FOR LVH, CONSIDER NORMAL VARIANT [MEETS CRITERIA IN ONE OF: R(aVL), S(V1), R(V5), R(V5/V6)+S(V1)] Compared to ECG 07/08/2024 15:46:59 Sinus rhythm no longer present Electronically Signed On 07-08-2024 22:23:25 CDT by Jacki Plunkett M.D. [email or web address]
[2024-07-08 17:38] LABS: Alanine Aminotransferase 28 U/L (0-41); Anion Gap 19.6 (5-19); Aspartate Amino Transferase 20 U/L (0-40); Blood Urea Nitrogen 40 mg/dL (6-20); Calcium 9.5 mg/dL (8.5-10.5); Carbon Dioxide 23 mmol/L (22-29); Globulin 2.7 g/dL (1.3-4.6); Glomerular Filtration Rate 50.6 mL/min (90-130); Glucose 125 mg/dL (65-115); Lipase 33 U/L (13-60); NT Pro B Type Natriuretic Pept < 36 pg/mL (0-125); Osmolality Calculated 297 mOsm/kg (285-295); Total Bilirubin 0.4 mg/dL (0.15-1.2); Total Protein 7.2 g/dL (6.6-8.7)
[2024-07-08 18:48] LABS: Troponin 5 2HR 12.34 ng/L (0-15); Troponin 5 2HR Delta 0.34 ABS# (0-10)
== END 2024-07-08 19:06 | disposition home or self-care (01) ==
PROVIDERS: Emergency Provider Emergency Medicine; PCP Family Medicine
DX: R07.9 Chest pain, unspecified (principal); R06.00 Dyspnea, unspecified; Z79.82 Long term (current) use of aspirin; Z79.02 Long term (current) use of antithrombotics/antiplatelets; Z72.0 Tobacco use; I25.10 Atherosclerotic heart disease of native coronary artery without angina pectoris; I10 Essential (primary) hypertension
CPT/HCPCS: 36415; 71045; 80053; 83690; 83880; 84484; 85025; 85378; 93005; 99285; J9999

== ENCOUNTER → 2025-02-04 09:50 | Outpatient (BNVA) | payer BC, SELFPAY | PROVIDERS: PCP Family Medicine; Visit Provider Family Medicine | DX: Z00.00 Encounter for general adult medical examination without abnormal findings (principal) | CPT/HCPCS: 80053; 80061; 84443; 85025 ==